=== PATIENT | female | born 1995 | race Caucasian/White ===

== ENCOUNTER 2020-03-10 09:29 | Outpatient (CLI) | payer OTHER, SELFPAY ==
--- NOTE | ~2020-03-10 | US_ITS ---
EXAMINATION: US right upper quadrant DATE: 03/10/2020 10:23 INDICATION: Postprandial right upper quadrant pain TECHNIQUE: Multiple grayscale and Doppler ultrasound images of the abdomen were obtained. COMPARISON: None available FINDINGS: The head and and body of the pancreas are normal. The pancreatic tail is obscured by bowel gas. The liver demonstrates increased echogenicity, heterogenous echotexture, and decreased through t ransmission. There is focal fatty sparing adjacent to the gallbladder fossa the liver. No surface nod ularity. Normal hepatopetal flow in the main portal vein. The gallbladder is normal with no abnormal wall thickening, pericholecystic fluid or stones. The normal common bile duct measures 4 mm. There wa s no sonographic Huggins sign. IMPRESSION: 1. Diffuse hepatic steatosis. Reviewed, dictated and finalized at location A.
== END 2020-03-10 09:30 | disposition home or self-care (01) ==
PROVIDERS: PCP Physician Assistant; Visit Provider Physician Assistant
DX: R10.11 Right upper quadrant pain (principal); K76.0 Fatty (change of) liver, not elsewhere classified
CPT/HCPCS: 76705

== ENCOUNTER → 2020-03-24 07:48 | Outpatient (CLI) | payer OTHER, SELFPAY ==
--- NOTE | ~2020-03-24 | MR_ITS ---
EXAMINATION: MR brain/brain stem wo/w con DATE: 03/24/2020 08:33 INDICATION: Migraine headache. TECHNIQUE: Magnetic resonance imaging (MRI) of the brain and brainstem was performed without and with 17 mL MultiHance intravenous contrast. Sequences included sagittal and axial T1-weighted FSE, axial diffusion-weighted FS EPI, axial T2*-weighted GRE, axial T2-weighted FLAIR Propeller, and axial T2-we ighted Propeller. Postcontrast sequences included axial and coronal T1-weighted FSE. Apparent diffusi on coefficient (ADC) maps were created. COMPARISON: Sinuses CT 09/12/2017 FINDINGS: There is no intracranial hemorrhage, acute infarction, or abnormal intracranial mass lesion . The ventricles are normal in size. The mastoid air cells are normal. The paranasal sinuses are lai r. The orbits are normal. IMPRESSION: 1. Normal brain. Reviewed, dictated and finalized at location A. IMPRESSION: 1. Normal brain.
[2020-03-24 08:20] LABS: Estimated Glomerular Filt Rate > 60
== END ==
PROVIDERS: PCP Physician Assistant; Visit Provider Physician Assistant
DX: G43.909 Migraine, unspecified, not intractable, without status migrainosus (principal)
CPT/HCPCS: 36415; 70553; A9577

== ENCOUNTER → 2021-07-27 16:28 | Outpatient (CLI) | payer BC, SELFPAY ==
--- NOTE | ~2021-07-27 | XR_ITS ---
EXAMINATION: XR hand RT 2V INDICATION: Polyarthralgia TECHNIQUE: Two views of the right hand are obtained. COMPARISON: None available FINDINGS: There is no fracture, dislocation, or subluxation. The bones, soft tissues, and joint space s are normal. IMPRESSION: 1. No acute osseous abnormality. Reviewed, dictated and finalized at location B. DESTRUCTIVE EVALUATION SPECIALIST
--- NOTE | ~2021-07-27 | XR_ITS ---
EXAMINATION: XR hand LT 2V INDICATION: Polyarthralgia TECHNIQUE: Two views of the left hand are obtained. COMPARISON: None available FINDINGS: There is no fracture, dislocation, or subluxation. The bones, soft tissues, and joint space s are normal. IMPRESSION: 1. No acute osseous abnormality. Reviewed, dictated and finalized at location B. ECTIONAL OFFICER SERGEANT
--- NOTE | ~2021-07-27 | XR_ITS ---
EXAMINATION: XR lumbar spine 2-3V DATE: 07/27/2021 16:56 INDICATION: Polyarthralgia TECHNIQUE: Anteroposterior and lateral views of the lumbar spine, and cone-down lateral view of the l umbosacral junction were obtained. COMPARISON: None. FINDINGS: There is no fracture, dislocation, or subluxation. The vertebral body heights, alignment, a nd intervertebral disc spaces are normal. The paravertebral soft tissues are unremarkable. An IUD is noted. The bowel gas pattern is unremarkable. IMPRESSION: 1. No acute osseous abnormality. Reviewed, dictated and finalized at location B. C BOX MECHANIC
--- NOTE | ~2021-07-27 | XR_ITS ---
EXAMINATION: XR sacroiliac joints min 3V INDICATION: Polyarthralgia TECHNIQUE: Three views of the sacroiliac joints are obtained. COMPARISON: None available FINDINGS: Bone alignment is normal. There is no fracture. There is no abnormal sclerosis or erosion o f the sacroiliac joints. An IUD is noted. IMPRESSION: 1. No acute osseous abnormality. Reviewed, dictated and finalized at location B. AL SERVICES SPECIALIST
--- NOTE | ~2021-07-27 | XR_ITS ---
XR knee LT 3V 07/27/2021 16:56 INDICATION: Left knee pain PROCEDURE: 3 views left knee COMPARISON: 04/23/2014 FINDINGS: Fracture, dislocation or subluxation is not identified. The soft tissues appear within norm al limits. No foreign bodies are identified. IMPRESSION: 1: NO ACUTE BONE OR JOINT ABNORMALITY IDENTIFIED. Reviewed, dictated and finalized at location A. CH GRINDER
== END ==
PROVIDERS: Visit Provider Physician Assistant Medical
DX: M25.50 Pain in unspecified joint (principal)
CPT/HCPCS: 72100; 72202; 73120; 73562

== ENCOUNTER 2022-03-18 11:16 | Emergency (ER) | payer BC, SELFPAY ==
[2022-03-18 11:30] VITALS: BP 129/94; PULSE 110; RESP 18; TEMP 36.5; O2SAT 100
--- NOTE | 2022-03-18 12:32 | ED.GENADULT ---
HPI - General Adult General Chief complaint: Abdominal Pain Stated complaint: Abdominal Pain History of Present Illness HPI narrative: Patient is a 26-year-old female who presents to the [facility] via POV accompanied by her spouse for evaluation of umbilical abdominal pain that began at 6 AM this morning. Patient reports abdominal pain this morning was excruciating . It has alleviated since onset. Pain also radiates to upper abdomen. Additionally, she reports 2 episodes of vomiting and 2 BMs this am. She does reports one BM was diarrhea. Vomitus contents contained undigested food and bile. With Tums, Sprite, water, or crackers. Nothing worsens abdominal pain. Pain is 8/10 on pain scale. Related Data Home Medications Medication Instructions Recorded Confirmed escitalopram oxalate 20 mg tablet 1 tablet PO DAILY 03/18/22 03/18/22 levonorgestrel 20 mcg/24 hours (7 See Rx Instructions .Route .COMPLEX 03/18/22 03/18/22 yrs) 52 mg intrauterine device (Mirena) omeprazole 20 mg capsule,delayed 1 cap PO DAILY 03/18/22 03/18/22 release triamterene 37.5 1 tablet PO DAILY 03/18/22 03/18/22 mg-hydrochlorothiazide 25 mg tablet ubrogepant 100 mg tablet (Ubrelvy) 1 tablet PO DAILY 03/18/22 03/18/22 Allergies Allergy/AdvReac Type Severity Reaction Status Date / Time No Known Allergies Allergy Verified 03/18/22 11:41 Review of Systems Review of Systems: Denies past abdominal medical history. Pertinent negatives fever, chills, sweats, malaise, poor p.o. intake, change in appetite, recent weight loss, lymphadenopathy, headache, sore throat, dizziness, LOC, urinary sxs, back/flank pain, extremity paresthesias, blood in stool, nausea, vomiting, diarrhea, constipation, belching, bloating, dry mouth, heartburn, jaundice, vomiting blood, and PMFSH Comments I have reviewed and agree with the patient's past medical, surgical, social, and family hx as documented by the RN. There is no relevant family history pertinent to the presenting complaint. Exam Narrative: GENERAL: Well-appearing, well-nourished, and in no acute distress. HEAD: Normocephalic, atraumatic. No sinus tenderness or facial swelling appreciated. EYES: PERRLA and EOMI. No evidence of erythema, swelling, or drainage. ENT: Mucous membranes moist and pink. Uvula is midline without erythema and swelling. No evidence of petechial rash, cobblestoning, lesions, ulcers, erythema, swelling, exudates, peritonsillar abscess, tenting, or drooling. Breath odor and voice normal. NECK: Supple. No Lymphadenopathy or nuchal rigidity appreciated. CHEST: Bilateral lung roach are clear to auscultation. No respiratory distress. No evidence of cough or pleuritic cp upon examination. HEART: Regular rate and rhythm. No murmur, gallop, or rub heard. ABDOMEN: Soft, nondistended, normal active bowel sounds in all quadrants. No guarding. No rebound tenderness. No pulsatile or palpable abdominal mass(es). No CVAT. Generalized abdominal tenderness appreciated upon palpation. EXTREMITIES: Normal range of motion. No edema. SKIN: Warm, dry, no rash. Excellent skin turgor. NEURO: No focal deficits. Alert and oriented x3. Course Course Level of Care: Express Care Visit Vital Signs Vital signs: Vital Signs Temperature 97.7 F 03/18/22 11:30 Pulse Rate 110 H 03/18/22 11:30 Respiratory Rate 18 03/18/22 11:30 Blood Pressure 129/94 H 03/18/22 11:30 Pulse Oximetry 100 03/18/22 11:30 Oxygen Delivery Room Air 03/18/22 11:30 Temperature 97.7 F 03/18/22 11:30 Pulse Rate 110 H 03/18/22 11:30 Respiratory Rate 18 03/18/22 11:30 Blood Pressure 129/94 H 03/18/22 11:30 Pulse Oximetry 100 03/18/22 11:30 Oxygen Delivery Room Air 03/18/22 11:30 Transfer Transfer rationale: R/O ACUTE ABDOMEN Accepting physician: REPORT GIVEN TO ROMA YUN. ACCEPTING PHYSICIAN IS Transfer comments: ALL QUESTIONS ANSWERED. Medical Decision Making
== END 2022-03-18 12:45 | disposition short-term general hospital (02) ==
PROVIDERS: Emergency Provider Nurse Practitioner Family; PCP Physician Assistant
DX: R10.84 Generalized abdominal pain (principal); K21.9 Gastro-esophageal reflux disease without esophagitis; F41.9 Anxiety disorder, unspecified; F32.A Depression, unspecified; Z86.16 Personal history of COVID-19
CPT/HCPCS: 99212; G0463

== ENCOUNTER 2022-03-18 13:00 | Emergency (ER) | payer BC, SELFPAY ==
--- NOTE | ~2022-03-18 | CT_ITS ---
EXAMINATION: CT abdomen pelvis w con DATE: 03/18/2022 15:07 INDICATION: diffuse abd pain with wbc of 30 TECHNIQUE: Computed tomography (CT) of the abdomen and pelvis was performed with 100 mL Omnipaque-300 intravenous contrast. Automated exposure control and iterative reconstruction technique were employe d. The dose-length product was 862.24 mGy-cm. COMPARISON: None. FINDINGS: Lower thorax: Unremarkable Liver: Low-density liver parenchyma. Biliary/Gallbladder: Gallbladder is normal. No bile duct dilation. Pancreas: No mass or duct dilation. Spleen: Normal. Adrenals:No mass. Kidneys: No mass, stone, or hydronephrosis. GI tract: No small or large bowel dilation. Soft tissue density wall thickening of the distal duodenu m and proximal jejunum, with surrounding fluid and inflammatory change. Appendix not visualized. Mesentery/Peritoneum: No mass or free air. Small volume fluid in the mesentery and deep pelvis. Retroperitoneum: No mass. Pelvis: IUD, in good position. Pelvic organs appear normal.. Soft Tissues: Soft tissues and body wall unremarkable. Bones: No acute osseous finding. IMPRESSION: Proximal small bowel thickening with surrounding inflammation and fluid, may reflect infection or inf lammation. Ischemia could be considered if there is a history of vasculitis. Steatosis. Reviewed, dictated and finalized at location K. IMPRESSION: Proximal small bowel thickening with surrounding inflammation and fluid, may re flect infection or inflammation. Ischemia could be considered if there is a his tory of vasculitis. Steatosis.
[2022-03-18 13:12] VITALS: BP 143/102; PULSE 102; RESP 18; TEMP 36.8; O2SAT 98
--- NOTE | 2022-03-18 13:17 | ED.ABDPAIN ---
HPI - Abdominal Pain General Chief Complaint: Abdominal Pain Stated Complaint: abd pain Time Seen by Provider: 03/18/22 13:13 Source: patient History of Present Illness HPI narrative: Patient presents with abdominal pain nausea vomiting and diarrhea. Patient ports she had a mild stomachache last night however this morning it was worse and now associated with vomiting and diarrhea so she came the ER for further evaluation. Her pain is across her entire abdomen achy, constant, no clear aggravating factors, radiates across her whole abdomen. Reports 2 episodes of vomiting this morning without blood or bile. She denies diarrhea as well. She reports she just got back a week ago for a cruise but denies any known sick contacts any recent changes to her medications or any recent antibiotics. Related Data Home Medications Medication Instructions Recorded Confirmed escitalopram oxalate 20 mg tablet 1 tablet PO DAILY 03/18/22 03/18/22 levonorgestrel 20 mcg/24 hours (7 See Rx Instructions .Route .COMPLEX 03/18/22 03/18/22 yrs) 52 mg intrauterine device (Mirena) omeprazole 20 mg capsule,delayed 1 cap PO DAILY 03/18/22 03/18/22 release triamterene 37.5 1 tablet PO DAILY 03/18/22 03/18/22 mg-hydrochlorothiazide 25 mg tablet ubrogepant 100 mg tablet (Ubrelvy) 1 tablet PO DAILY 03/18/22 03/18/22 Allergies Allergy/AdvReac Type Severity Reaction Status Date / Time No Known Allergies Allergy Verified 03/18/22 13:11 Review of Systems Review of Systems: CONSTITUTIONAL: Denies fever, chills, or sweats. EYES: Denies visual changes, redness, or discharge. ENT: Denies rhinorrhea, congestion, sore throat, or otalgia. CARDIOVASCULAR: Denies chest pain, palpitations, or edema. RESPIRATORY: Denies cough or dyspnea. GASTROINTESTINAL: Diffuse abdominal pain with nausea vomiting and diarrhea GENITOURINARY: Denies dysuria or hematuria. SKIN: Denies rash or itching. MUSCULOSKELETAL: Denies back pain, joint pain, or myalgia. NEUROLOGIC: Denies headache, numbness, dizziness, or weakness. PSYCHIATRIC: Denies anxiety or depression. All systems reviewed & are unremarkable except as noted in HPI and below PMFSH Past Medical History Medical History (Updated 03/18/22 @ 16:00 by Rock Lloyd MD) Anxiety Social History Social History (Updated 03/18/22 @ 13:18 by Rcok Lloyd MD) Living arrangements: with family Exam Narrative: GENERAL: Well-appearing, well-nourished, and in no acute distress. HEAD: Normocephalic, atraumatic. EYES: PERRLA and EOMI. ENT: Nares clear, no rhinorrhea or epistaxis. Mucous membranes moist. NECK: Supple. No masses. No JVD ABDOMEN: Diffuse abdominal pain with deep palpation no rebound or guarding soft, nondistendedsounds. EXTREMITIES: Normal range of motion. No edema. SKIN: Warm, dry, no rash. NEURO: No focal deficits. Alert and oriented x3. PSYCH: Normal mood and affect. Course Reevaluation(s) Reevaluation #1: Patient resting comfortably results and plan reviewed with patient. Patient is comfortable with the outpatient plan. Date: 03/18/22 Time: 15:55 Vital Signs Vital signs: Vital Signs Temperature 36.8 C 03/18/22 13:12 Pulse Rate 102 H 03/18/22 13:12 Respiratory Rate 18 03/18/22 13:12 Blood Pressure 143/102 H 03/18/22 13:12 Pulse Oximetry 98 03/18/22 13:12 Temperature 36.8 C 03/18/22 13:12 Pulse Rate 96 03/18/22 16:03 Respiratory Rate 14 03/18/22 16:03 Blood Pressure 138/76 03/18/22 16:03 Pulse Oximetry 99 03/18/22 16:03 MDM - Abdominal Pain MDM Narrative Medical decision making narrative: H&P as above, vss, pt looks clinically well, exam mild diffuse abdominal pain, labs with significant leukocytosis however H&H is low platelets also elevated so CT was ordered, img showed small bowel inflammation additional labs/img considered, symptomatic relief available as needed, on reevaluation pt continues to looks clinically well. Suspect viral p
[2022-03-18] MEDS: SODIUM CHLORIDE 0.9% IV 1,000 ML 999 ML IV CONT ×2 (13:35→15:32)
[2022-03-18 13:48] LABS: Basophils Absolute Auto 0.1 K/mm3 (0.0-0.1); Basophils Percent Auto 0.2 % (0.2-1.2); Eosinophils Percent Auto 0.1 % (0-4.4); Hematocrit 47.5 % (37.0-47.0); Hemoglobin 15.6 g/dL (12.0-15.0); Immature Granulocyte Absolute 0.21 K/mm3 (0.00-0.031); Immature Granulocyte Percent A 0.7 % (0-0.5); Lymphocytes Absolute Auto 2.94 K/mm3 (0.9-3.2); Lymphocytes Percent Auto 9.9 % (18.3-44.2); Mean Corpuscular HGB Conc 32.8 g/dl (32-36); Mean Corpuscular Hemoglobin 27.9 pg (26-34); Mean Platelet Volume 9.9 fl (7.4-10.4); Monocytes Absolute Auto 1.1 K/mm3 (0.1-0.6); Monocytes Percent Auto 3.6 % (2.6-8.5); Neutrophils Absolute Auto 25.5 K/mm3 (1.3-6.7); Neutrophils Percent Auto 85.5 % (45.5-73.1); Platelet Count Result 551 k/mm3 (150-375); Red Blood Count 5.59 M/mm3 (4.2-5.4); Red Cell Distribution Width 13.6 % (11.5-14.5); White Blood Count 29.8 K/mm3 (4.5-10.0)
[2022-03-18 13:52] LABS: Appearance Urine Clear (Clear); Bilirubin Urine 1+ (Negative); Blood Urine Negative (Negative); Color Urine Yellow (Yellow); Glucose Urine UA Negative (Negative); Ketones Urine Negative (Negative); Leukocyte Esterase Ur Trace LEU/UL (Negative); Nitrate Urine Negative (Negative); Protein Urine Negative (Negative); Specific Grav Ur 1.015 (1.001-1.035); Urobilinogen Urine 0.2 mg/dL (<2.0)
[2022-03-18 13:56] LABS: Alanine Aminotransferase 42 U/L (6-35); Alkaline Phosphatase 90 U/L (38-126); Anion Gap 10 mmol/L (8-16); Aspartate Amino Transferase 41 U/L (14-36); Bilirubin,Total 0.5 mg/dL (0.2-1.3); Blood Urea Nitrogen 13 mg/dL (7-17); Carbon Dioxide 26 mmol/L (22-30); Chloride 105 mmol/L (98-107); Estimated CRCL calculation 95 ml/min; Estimated Glomerular Filt Rate > 60; Glucose 106 mg/dL (65-110); Lipase 136 U/L (23-300); Sodium 141 mmol/L (137-145)
[2022-03-18 13:58] LABS: Mucus Urine Rare /lpf; Squamous Epithelial Cell Urine Many /hpf (Few)
[2022-03-18] MEDS: ONDANSETRON INJ 4 MG/2 ML VIAL IV PUSH (14:07)
[2022-03-18 14:19] LABS: Add Urine Microscopic? YES
[2022-03-18 16:03] VITALS: BP 138/76; PULSE 96; RESP 14; O2SAT 99
== END 2022-03-18 16:13 | disposition home or self-care (01) ==
PROVIDERS: Emergency Provider Emergency Medicine; PCP Physician Assistant
DX: R11.2 Nausea with vomiting, unspecified (principal); R19.7 Diarrhea, unspecified; R10.84 Generalized abdominal pain; D72.829 Elevated white blood cell count, unspecified; K76.0 Fatty (change of) liver, not elsewhere classified; Z97.5 Presence of (intrauterine) contraceptive device; R93.3 Abnormal findings on diagnostic imaging of other parts of digestive tract
CPT/HCPCS: 36415; 74177; 80053; 81001; 81025; 83690; 85025; 96361; 96374; 99284; J2405; J7030; Q9967

== ENCOUNTER → 2022-04-17 11:13 | Outpatient (CLI) | payer BC, SELFPAY ==
--- NOTE | ~2022-04-17 | US_ITS ---
EXAMINATION: US pelvic complete DATE: 04/17/2022 11:31 INDICATION: IUD placement. Comparison:No prior studies for comparison. TECHNIQUE: Multiple transabdominal sonographic images of the pelvis performed. FINDINGS: The uterus measures 8.5 x 2.4 x 3.6 cm. IUD is present in the endometrium. The endometrial complex measures 4 mm. The right ovary measures 2.4 x 1.1 x 1.5 cm and the left ovary measures 2.3 x 1.8 x 2.3 cm. There ar e small follicles in each ovary. Normal doppler signal in both ovaries. There is no free fluid in the pelvis. There are no abnormal masses seen on either side. IMPRESSION: 1. Unremarkable pelvic ultrasound. IUD in expected position. Reviewed, dictated and finalized at location A.
== END ==
PROVIDERS: PCP Physician Assistant; Visit Provider Nurse Practitioner
DX: Z30.431 Encounter for routine checking of intrauterine contraceptive device (principal)
CPT/HCPCS: 76856

== ENCOUNTER 2022-06-20 16:06 | Emergency (ER) | payer OTHER, SELFPAY ==
[2022-06-20 16:16] VITALS: BP 142/98; PULSE 85; RESP 20; TEMP 36.9; O2SAT 100
--- NOTE | 2022-06-20 16:18 | ED.URI ---
HPI - URI/Sore Throat General Chief Complaint: Upper Respiratory Infection Stated Complaint: Sore Throat,Cough,Bilateral Ear Irritation Time Seen by Provider: 06/20/22 16:25 Source: patient and RN notes reviewed Mode of arrival: ambulatory Limitations: no limitations History of Present Illness HPI Narrative: 26-year-old female presents concern for 4 to 5-day history of sore throat, cough, nasal congestion, ear pressure. She reports symptoms seem to worsen today with worsening sore throat and ear pressure. Reports she took several [id number] multisymptom cold medicines with little relief. She reports having a negative COVID test at home. She denies body aches, chills, sweats. MD elicited complaint: sore throat and nasal congestion Related Data Home Medications Medication Instructions Recorded Confirmed escitalopram oxalate 20 mg tablet 1 tablet PO DAILY 03/18/22 06/20/22 levonorgestrel 20 mcg/24 hours (8 See Rx Instructions .Route .COMPLEX 03/18/22 06/20/22 yrs) 52 mg intrauterine device (Mirena) omeprazole 20 mg capsule,delayed 1 cap PO DAILY 03/18/22 06/20/22 release triamterene 37.5 1 tablet PO DAILY 03/18/22 06/20/22 mg-hydrochlorothiazide 25 mg tablet ubrogepant 100 mg tablet (Ubrelvy) 1 tablet PO DAILY 03/18/22 06/20/22 Allergies Allergy/AdvReac Type Severity Reaction Status Date / Time No Known Allergies Allergy Verified 06/20/22 16:23 Review of Systems Review of Systems: CONSTITUTIONAL: Reports malaise, fatigue Denies chills, sweats EYES: Denies visual changes, redness, or discharge. ENT: Reports rhinorrhea, congestion, sinus pain, otalgia, sore throat. CARDIOVASCULAR: Denies chest pain, palpitations, or edema. RESPIRATORY: Reports cough. Denies dyspnea. GASTROINTESTINAL: Denies abdominal pain, nausea, vomiting, diarrhea SKIN: Denies rash or itching. MUSCULOSKELETAL: Reports myalgia. NEUROLOGIC: Reports headache. All systems reviewed & are unremarkable except as noted in HPI and below PMFSH Past Medical History Medical History (Updated 06/20/22 @ 16:41 by Irma Martinez NP) Anxiety Comments At time of signature, agree with nursing past medical, surgical, social and family history. There is no relevant family history pertinent to the presenting complaint Exam Narrative: GENERAL: Nontoxic appearing and in no acute distress. HEAD: Normocephalic EYES: PERRLA, conjunctivae clear ENT: Nares clear, turbinates edematous and erythematous, clear discharge. Mucous membranes moist. TM pearly woody with dull light reflex bilaterally; no tragal tenderness. Oropharynx erythematous without lesions. Tonsils not enlarged and with exudate, no drooling, no hoarseness, no trismus, uvula midline. NECK: Supple. No lymphadenopathy CHEST: Clear to auscultation, breath sounds equal. No wheezing, rhonchi, rales, or stridor. No respiratory distress, speaks in full sentences. HEART: Regular rate and rhythm. No murmur heard. SKIN: Warm, dry, no rash. NEURO: Alert and oriented x3. PSYCH: Normal mood and affect Course Course Emergency Course: Patient is aware of diagnosis, understands and agrees to treatment plan. Anticipatory guidance given. Patient agrees to follow-up as directed and is aware of reasons to seek care at the emergency department. Portions of this record may have been created with voice recognition software Level of Care: Express Care Visit Vital Signs Vital signs: Vital Signs Temperature 98.4 F 06/20/22 16:16 Pulse Rate 85 06/20/22 16:16 Respiratory Rate 20 06/20/22 16:16 Pulse Oximetry 100 06/20/22 16:16 Oxygen Delivery Room Air 06/20/22 16:16 Temperature 98.4 F 06/20/22 16:16 Pulse Rate 85 06/20/22 16:16 Respiratory Rate 20 06/20/22 16:16 Pulse Oximetry 100 06/20/22 16:16 Oxygen Delivery Room Air 06/20/22 16:16 Reviewed. MDM - URI/Sore Throat MDM Narrative Medical decision making narrative: Differential diagnosis considered: Bright vi
== END 2022-06-20 16:46 | disposition home or self-care (01) ==
PROVIDERS: Emergency Provider Nurse Practitioner; PCP Physician Assistant
DX: J10.1 Influenza due to other identified influenza virus with other respiratory manifestations (principal); Z20.822 Contact with and (suspected) exposure to COVID-19; F41.9 Anxiety disorder, unspecified
CPT/HCPCS: 87081; 87426; 87804; 87880; 99213; C9803; G0463

== ENCOUNTER 2022-11-25 10:40 | Emergency (ER) | payer OTHER, SELFPAY ==
[2022-11-25 11:03] VITALS: BP 148/94; PULSE 75; RESP 20; TEMP 36.1; O2SAT 100
--- NOTE | 2022-11-25 11:31 | ED.GENADULT ---
HPI - General Adult General Chief complaint: Upper Respiratory Infection Stated complaint: lt ear and throat pain Time Seen by Provider: 11/25/22 11:31 Source: patient Mode of arrival: ambulatory Limitations: no limitations History of Present Illness HPI narrative: 7-year-old female patient presents to the [facility] with complaints of left ear pain and left-sided sore throat pain that started yesterday. Patient denies any fevers, body aches or chills. Patient states she has had a little bit a headache the left side of the head. Denies any abdominal pain, nausea, vomiting or diarrhea. Related Data Home Medications Medication Instructions Recorded Confirmed escitalopram oxalate 20 mg tablet 1 tablet PO DAILY 03/18/22 11/25/22 levonorgestrel 21 mcg/24 hours (8 See Rx Instructions .Route .COMPLEX 03/18/22 11/25/22 yrs) 52 mg intrauterine device (Mirena) omeprazole 20 mg capsule,delayed 1 cap PO DAILY 03/18/22 11/25/22 release triamterene 37.5 1 tablet PO DAILY 03/18/22 11/25/22 mg-hydrochlorothiazide 25 mg tablet Allergies Allergy/AdvReac Type Severity Reaction Status Date / Time No Known Allergies Allergy Verified 11/25/22 11:10 Review of Systems Review of Systems: CONSTITUTIONAL: Denies fever, chills, or sweats. EYES: Denies visual changes, redness, or discharge. ENT: Denies rhinorrhea, congestion, Positive sore throat, positive left otalgia. CARDIOVASCULAR: Denies chest pain, palpitations, or edema. RESPIRATORY: Denies cough or dyspnea. GASTROINTESTINAL: Denies abdominal pain, nausea, vomiting, or diarrhea. GENITOURINARY: Denies dysuria or hematuria. SKIN: Denies rash or itching. MUSCULOSKELETAL: Denies back pain, joint pain, or myalgia. NEUROLOGIC: Denies headache, numbness, or weakness. PSYCHIATRIC: Denies anxiety or depression. [facility] Past Medical History Medical History (Updated 11/25/22 @ 11:58 by CE Carreon) Anxiety Fracture of phalanx of left index finger Strep pharyngitis Social History Social History Living arrangements: with family Comments At the time of my signature I agree with nursing past medical history, surgical, social, and family history. There is no relevant family history pertinent to the presenting complaint. Exam Narrative: GENERAL: Well-appearing, well-nourished, and in no acute distress. HEAD: Normocephalic, atraumatic. EYES: PERRLA and EOMI. ENT: Nares clear, no rhinorrhea or epistaxis. Mucous membranes moist. posterior pharynx has small little pocket/tonsil stone noted to the left pharynx. Bilateral TMs are clear no erythema from body in the canal. NECK: Supple. No lymphadenopathy CHEST: Clear to auscultation. No respiratory distress. HEART: Regular rate and rhythm. No murmur heard. Normal peripheral pulses. ABDOMEN: Soft, nontender, nondistended, normal active bowel sounds. EXTREMITIES: Normal range of motion. No edema. SKIN: Warm, dry, no rash. NEURO: No focal deficits. Alert and oriented x3. Course Course Level of Care: Express Care Visit Reevaluation(s) Reevaluation #1: Evaluated patient notified her strep testing is negative. Does appear that she has possibly will also use a back with her we will go ahead and prescribe her some Magic mouthwash to help the pain, advised [id number] Tylenol ibuprofen as needed. Date: 11/25/22 Time: 11:59 Vital Signs Vital signs: Vital Signs Temperature 36.1 C L 11/25/22 11:03 Pulse Rate 75 11/25/22 11:03 Respiratory Rate 20 11/25/22 11:03 Blood Pressure 148/94 H 11/25/22 11:03 Pulse Oximetry 100 11/25/22 11:03 Oxygen Delivery Room Air 11/25/22 11:03 Temperature 36.1 C L 11/25/22 11:03 Pulse Rate 75 11/25/22 11:03 Respiratory Rate 20 11/25/22 11:03 Blood Pressure 148/94 H 11/25/22 11:03 Pulse Oximetry 100 11/25/22 11:03 Oxygen Delivery Room Air 11/25/22 11:03 vital signs reviewed. The patient h
== END 2022-11-25 12:00 | disposition home or self-care (01) ==
PROVIDERS: Emergency Provider Nurse Practitioner Family; PCP Physician Assistant
DX: J02.9 Acute pharyngitis, unspecified (principal); F41.9 Anxiety disorder, unspecified
CPT/HCPCS: 87081; 87880; 99213; G0463

== ENCOUNTER → 2022-12-01 10:12 | Outpatient (CLI) | payer OTHER, SELFPAY ==
--- NOTE | ~2022-12-01 | US_ITS ---
Pelvic ultrasound. Clinical History: IUD placement Technique: Realtime transabdominal scanning of the pelvis was performed. Color flow Doppler and Doppl er spectral analysis were performed. Findings: The uterus is anteverted. The endometrial stripe has a thickness of 6 mm. Questionable vis ualization of IUD. No focal mass is identified. The right ovary measures 2.8 x 1.4 x 2.0 cm. No significant right ovarian or adnexal mass is seen. The left ovary measures 2.9 x 1.3 x 2.0 cm. No significant left ovarian or adnexal mass is seen. There is no evidence of free fluid in the cul de sac. Impression: Questionable visualization of IUD in the endometrial cavity. Consider transvaginal exam to better vis ualize, as indicated. Reviewed, dictated and finalized at [facility]. Impression: Questionable visualization of IUD in the endometrial cavity. Consider transvagi nal exam to better visualize, as indicated.
== END ==
PROVIDERS: PCP Physician Assistant; Visit Provider Obstetrics & Gynecology Gynecology
DX: T83.32XA Displacement of intrauterine contraceptive device, initial encounter (principal)
CPT/HCPCS: 76856

== ENCOUNTER 2024-04-25 06:54 | Outpatient (CLI) | payer OTHER, SELFPAY ==
--- NOTE | ~2024-04-25 | NM_ITS ---
EXAMINATION: NM hepatobiliary w pharm DATE: 04/25/2024 09:11 CDT INDICATION: Upper abdominal pain COMPARISON: CT dated 03/18/2022. TECHNIQUE: 4.7 mCi Tc-99m mebrofenin (Choletec) was administered intravenously. Scintigraphic images of the abdomen were obtained for one hour. At the 1 hour time point, 2 mcg sincalide (Kinevac) was a dministered by slow intravenous infusion, and imaging was continued for 30 minutes. Gallbladder eject ion fraction was calculated by the technologist.] FINDINGS: There is normal clearance of radiotracer from the blood pool. There is homogeneous tracer u ptake by the liver. Activity progresses to the gallbladder and bowel. Gallbladder ejection fraction is 85% (normal 10-90%, but most patient with gallbladder dysfunction have GBEF < 35%).] IMPRESSION: 1. Normal hepatobiliary scan. Reviewed, dictated and finalized at location B.
== END 2024-04-25 06:55 | disposition home or self-care (01) ==
PROVIDERS: PCP Physician Assistant; Visit Provider Physician Assistant
DX: R10.10 Upper abdominal pain, unspecified (principal)
CPT/HCPCS: 78227; A9537; J2805

== ENCOUNTER 2024-06-16 08:24 | Outpatient (CLI) | payer OTHER, SELFPAY ==
--- NOTE | ~2024-06-16 | XR_ITS ---
EXAMINATION: XR UGIAC w barium swallow DATE: 06/16/2024 08:50 INDICATION: Acid reflux. TECHNIQUE: The patient drank thick barium, gas-producing crystals, and thin barium. Fluoroscopy of th e esophagus, stomach, and proximal small bowel was performed. Fluoroscopy exposure time was 0.8 minut es. The total number of images was 286. Total dose-area product was 2.4 Gy-cm^2. COMPARISON: CT abdomen and pelvis 03/18/2022 FINDINGS: There is no mass or stricture of the esophagus. Esophageal motility is normal. There is no hiatal hernia. There was no gastroesophageal reflux with provocative maneuvers. There is material in the stomach at the beginning of the procedure. The stomach and proximal small bowel show normal foldi ng patterns. IMPRESSION: 1. Material in the stomach at the beginning of the procedure. The patient reports last eating food th e night before the exam. These findings are suspicious for gastroparesis or bezoar. Reviewed, dictated and finalized at location A. IMPRESSION: 1. Material in the stomach at the beginning of the procedure. The patient repor ts last eating food the night before the exam. These findings are suspicious fo r gastroparesis or bezoar.
== END 2024-06-16 08:25 | disposition home or self-care (01) ==
PROVIDERS: PCP Physician Assistant; Visit Provider Physician Assistant
DX: K21.9 Gastro-esophageal reflux disease without esophagitis (principal); R93.3 Abnormal findings on diagnostic imaging of other parts of digestive tract
CPT/HCPCS: 74246

== ENCOUNTER 2024-08-08 00:54 | Day surgery (SDC) | payer OTHER, SELFPAY ==
[2024-07-25 09:12] VITALS: BMI 37.5
[2024-08-08 11:16] LABS: Glucose Point of Care 95 mg/dl (65-105)
[2024-08-08 11:21] VITALS: BP 145/103; PULSE 75; RESP 16; TEMP 36.3; O2SAT 100
[2024-08-08 11:22] VITALS: BMI 37.4
[2024-08-08 11:29] LABS: BEDSIDEPREGUCG Negative (Negative)
[2024-08-08] MEDS: LACTATED RINGERS 1,000 ML 150 ML IV CONT (11:31)
--- NOTE | 2024-08-08 12:01 | WPDANESEPPF ---
Anes - Initial Pre Proc Eval Procedure: Operation Date: 08/08/24 12:30 Proposed Procedures p Esophagogastroduodenoscopy - Pedor Goldstein MD Date/Time: 08/08/24 12:01 Surgeon: Pedro Goldstein MD Pre Op Diagnosis: GERD/ Early Satiety Patient Data Age: 28 Gender: F Height: 1.55 m Weight: 89.9 kg Last Vital Signs Temp 97.3 F L 08/08/24 11:21 Pulse 75 08/08/24 11:21 Resp 16 08/08/24 11:21 BP 145/103 H 08/08/24 11:21 Pulse Ox 100 08/08/24 11:21 O2 Del Method Room Air 08/08/24 11:21 Allergies Allergy/AdvReac Type Severity Reaction Status Date / Time No Known Allergies Allergy Verified 08/08/24 11:16 Home Medications Medication Instructions Recorded Confirmed Type escitalopram oxalate 20 mg tablet 1 tablet PO DAILY 03/18/22 08/08/24 History levonorgestrel 21 mcg/24 hr (up to See Rx Instructions .Route .COMPLEX 03/18/22 08/08/24 History 8 years) 52 mg intrauterine device (Mirena) omeprazole 20 mg capsule,delayed 1 cap PO DAILY 03/18/22 08/08/24 History release triamterene 37.5 1 tablet PO DAILY 03/18/22 08/08/24 History mg-hydrochlorothiazide 25 mg tablet metformin 500 mg tablet,extended 500 mg PO DAILY 07/10/24 08/08/24 History release 24 hr metoclopramide HCl 5 mg tablet 5 mg PO DAILY #30 tabs 07/10/24 08/08/24 Rx (Reglan) Laboratory Tests 08/08/24 08/08/24 11:14 11:21 POC Capillary Glucose 95 mg/dl (65-105) POC Urine HCG, Qual Negative (Negative) Patient hx anesthesia problems: none Family hx anesthesia problems: none Results Review: All pre-operative results and documents have been reviewed as part of the pre-operative evaluation. [facility] Past Medical History Medical History Anxiety Fracture of phalanx of left index finger Strep pharyngitis Social History Social History Smoking status: Never smoker Living arrangements: with family Spiritual care concerns: No Anes - Eval Final PreProcedure Day of Procedure 08/08/24 12:01 Patient weight: obese Heart: regular rate and rhythm Lungs: clear to auscultation Airway: Mallampati scale class II Neurological: alert and oriented Last oral intake: >/= 8 hours ASA classification: III Emergent: no Anesthetic plan: proceed Anesthesia type and monitoring: general GIVS and standard monitoring Results Review: All pre-operative results and documents have been reviewed as part of the pre-operative evaluation. Informed Consent: The patient's anesthetic plan and its attendant risks and benefits were discussed with the patient/family/POA. Questions were solicited and answers provided to the satisfaction of the patient/family/POA.
--- NOTE | 2024-08-08 12:46 | PM.IMHP ---
H&P: HPI History of Present Illness Date/Time: 08/08/24 12:46 Chief Complaint: dyspepsia Narrative: The patient reports symptoms of acid reflux, nausea about once a week, bloating, and feeling full all the time even with small amounts of food She has been on omeprazole 20 mg once daily for a couple years which helps as long as she takes it every day. She is suspected to have delayed gastric emptying based on a barium study and her symptoms. Here for EGD Review of Systems Review of Systems: All systems reviewed & are unremarkable except as noted in HPI and below PMFSH Past Medical History Medical History Anxiety Fracture of phalanx of left index finger Strep pharyngitis Social History Social History Smoking status: Never smoker Living arrangements: with family Spiritual care concerns: No Meds Home Medications and Allergies Home Medications Medication Instructions Recorded Confirmed Type escitalopram oxalate 20 mg tablet 1 tablet PO DAILY 03/18/22 08/08/24 History levonorgestrel 21 mcg/24 hr (up to See Rx Instructions .Route .COMPLEX 03/18/22 08/08/24 History 8 years) 52 mg intrauterine device (Mirena) omeprazole 20 mg capsule,delayed 1 cap PO DAILY 03/18/22 08/08/24 History release triamterene 37.5 1 tablet PO DAILY 03/18/22 08/08/24 History mg-hydrochlorothiazide 25 mg tablet metformin 500 mg tablet,extended 500 mg PO DAILY 07/10/24 08/08/24 History release 24 hr metoclopramide HCl 5 mg tablet 5 mg PO DAILY #30 tabs 07/10/24 08/08/24 Rx (Reglan) Allergies Allergy/AdvReac Type Severity Reaction Status Date / Time No Known Allergies Allergy Verified 08/08/24 11:16 Vital Signs Vital Signs - 24 hr 08/08/24 11:21 Temperature 97.3 F L Pulse Rate 75 Respiratory Rate 16 Blood Pressure 145/103 H Pulse Oximetry 100 Oxygen Delivery Room Air Exam Narrative: GENERAL: Well-appearing, well-nourished, and in no acute distress. HEAD: Normocephalic, atraumatic. EYES: PERRLA and EOMI. ENT: Nares clear, no rhinorrhea or epistaxis. Mucous membranes moist. posterior pharynx has small little pocket/tonsil stone noted to the left pharynx. Bilateral TMs are clear no erythema from body in the canal. NECK: Supple. No lymphadenopathy CHEST: Clear to auscultation. No respiratory distress. HEART: Regular rate and rhythm. No murmur heard. Normal peripheral pulses. ABDOMEN: Soft, nontender, nondistended, normal active bowel sounds. EXTREMITIES: Normal range of motion. No edema. SKIN: Warm, dry, no rash. NEURO: No focal deficits. Alert and oriented x3. Assessment and Plan Assessment and plan (1) Gastroparesis: Code(s): K31.84 - Gastroparesis Status: Acute Assessment and Plan: The patient is deemed a good candidate for the procedure. Consent signed. Will proceed. (2) Early satiety: Code(s): R68.81 - Early satiety Status: Acute
[2024-08-08] MEDS: SIMETHICONE ORAL SUSPENSION 20 MG/0.3 ML 30 ML BOTTLE 0.6 ML IRRIGATION (12:56)
[2024-08-08 13:03] VITALS: BP 99/64; PULSE 66; RESP 21; O2SAT 96
[2024-08-08 13:13] VITALS: BP 111/70; PULSE 55; RESP 19; O2SAT 100
[2024-08-08 13:23] VITALS: BP 110/67; PULSE 58; RESP 17; O2SAT 99
== END 2024-08-08 13:32 | disposition home or self-care (01) ==
PROVIDERS: Anesthesiology; PCP Physician Assistant; Referring Provider Nurse Practitioner; Visit Provider Internal Medicine Gastroenterology
PROC: 0DJ08ZZ Inspection of Upper Intestinal Tract, Via Natural or Artificial Opening Endoscopic (ICD-10-PCS; CPT 43235; principal; 2024-08-08 12:30)
DX: K29.50 Unspecified chronic gastritis without bleeding (principal); F41.9 Anxiety disorder, unspecified; E66.9 Obesity, unspecified; Z68.37 Body mass index [BMI] 37.0-37.9, adult; Z79.899 Other long term (current) drug therapy
CPT/HCPCS: 43239; 82948; 88305; J2704; J7120

== ENCOUNTER 2025-01-06 08:46 | Emergency (ER) | payer OTHER, SELFPAY ==
[2025-01-06 08:55] VITALS: BP 131/89; PULSE 84; RESP 17; TEMP 36.4; O2SAT 100
--- NOTE | 2025-01-06 09:06 | ED_ITS ---
HPI - URI/Sore Throat General Chief Complaint: Upper Respiratory Infection Stated Complaint: Sore throat / Ear Pain Time Seen by Provider: 01/06/25 09:06 Source: patient Mode of arrival: ambulatory Limitations: no limitations History of Present Illness HPI Narrative: Here for sore throat that started on 01/05 in the morning. She reports her main symptoms are sore throat pain that feels like knives radiating to the ears and her neck in slight body aches. She denies any sick contacts. She reports a little nausea. She is able to eat and drink okay. She denies any fevers. She denies cough and congestion. She denies any shortness of breath and trouble breathing. She denies any chest pain. Patient is prone to yeast infections with antibiotic use and requests treatment for yeast if she needs antibiotics. Related Data Home Medications ?Medication ?Instructions ?Recorded ?Confirmed ?Last Taken ?Type escitalopram oxalate 20 mg tablet 1 tablet PO DAILY 03/18/22 01/06/25 08/07/24 History levonorgestrel (Mirena) See Rx Instructions .Route .COMPLEX 03/18/22 01/06/25 08/08/24 History triamterene 37.5 1 tablet PO DAILY 03/18/22 01/06/25 08/08/24 History mg-hydrochlorothiazide 25 mg tablet metformin 500 mg tablet,extended 500 mg PO DAILY 07/10/24 01/06/25 08/07/24 History release 24 hr bupropion HCl 150 mg 24 hr tablet, mg PO 01/06/25 Unknown History extended release Allergies Allergy/AdvReac Type Severity Reaction Status Date / Time No Known Allergies Allergy Verified 01/06/25 08:53 Review of Systems Review of Systems: CONSTITUTIONAL: Denies fever, chills, or sweats. EYES: Denies visual changes, redness, or discharge. ENT: Denies rhinorrhea, congestion. Reports sore throat and otalgia. CARDIOVASCULAR: Denies chest pain, palpitations, or edema. RESPIRATORY: Denies cough or dyspnea. GASTROINTESTINAL: Denies abdominal pain, vomiting, or diarrhea. reports nausea. GENITOURINARY: Denies dysuria or hematuria. SKIN: Denies rash or itching. MUSCULOSKELETAL: Denies back pain, joint pain. reports body aches NEUROLOGIC: Denies numbness, or weakness. reports headaches. PSYCHIATRIC: Denies anxiety or depression. All other systems reviewed are negative, except as documented in HPI. [facility] Past Medical History Medical History Strep pharyngitis Fracture of phalanx of left index finger Anxiety Social History Social History Smoking status: Never smoker Living arrangements: with family Spiritual care concerns: No Comments At time of signature, I have reviewed and agree with nursing past medical, surgical, social and family history unless otherwise noted. Please see nursing chart for further information. There is no relevant family history pertinent to the presenting complaint. Exam Narrative: GENERAL: This is a well-nourished, well-developed patient, in no apparent distress. HEAD: normocephalic, atraumatic. EYES: Sclera clear/white. no drainage. EARS: External ears normal, auditory canals clear and without drainage, TMs slightly erythematous without perforation. Hearing grossly intact. NOSE: External nose normal with no obvious nasal discharge, nares without redness, no rhinorrhea. THROAT: Mucous membranes moist, posterior pharynx erythematous with exudate. NECK: Neck tender with submandibular and preauricular lymphadenopathy. CARDIOVASCULAR: Regular rate and rhythm without murmurs, gallops, or rubs. RESPIRATORY: Clear to auscultation. Breath sounds equal bilaterally. No wheezes, rales, or rhonchi. SKIN: warm, Dry, intact with no suspicious lesions or rash, good texture and turgor. NEURO: awake, alert, and oriented to person, place and time. There were no obvious focal neurologic abnormalities. EXTREMITIES: No joint tenderness, effusion, or edema noted. Course Course Level of Care: Express Care Visit Vital Signs Vital signs: Vital Signs Temperature 36.4 C 01/06/25 08:55 Pulse Rate 84 01/06/25 08:55 Respiratory Rate 17 01/06/25 08:55 Blood Pressure 131/89 01/06/25 08:55 Pulse Oximetry 100 01/06/25 08:55 Oxygen Delivery Room Air 01/06/25 08:55 Temperature 36.4 C 01/06/25 08:55 Pulse Rate 84 01/06/25 08:55 Respiratory Rate 17 01/06/25 08:55 Blood Pressure 131/89 01/06/25 08:55 Pulse Oximetry 100 01/06/25 08:55 Oxygen Delivery Room Air 01/06/25 08:55 reviewed. MDM - URI/Sore Throat MDM Narrative Medical decision making narrative: Strep test positive today. Patient is aware of diagnosis, understands and agrees to treatment plan. Anticipatory guidance was given. Reviewed the patient gets vaginal yeast infections with antibiotic use. Discussed risk and benefits of treatment for vaginal yeast. Reviewed oral Diflucan has interaction with escitalopram shared decision making was used to decide that topical vaginal yeast treatment was safest. This was prescribed for yeast if it develops with antibiotic use. Patient agrees to follow-up as directed and is aware of reasons to seek care at the emergency department. Discharge instructions?? Were reviewed with the patient, as well as provided in writing per nursing staff. All questions have been answered, and the patient denies any further questions related to discharge or discharge plan. Lab Data Labs: Strep test positive. flu and COVID swabs negative. Discharge Plan Discharge Clinical Impression: Strep pharyngitis Patient Disposition: Home Condition: Stable Instructions: Antibiotic Form, Strep Throat (ED) Additional Instructions: Take medications as prescribed and follow printed instructions. May take over the counter acetaminophen and/or ibuprofen by mouth as needed/directed for pain/fever.? May use over the counter throat sprays and lozenges to help with throat pain.? May use warm salt water gargles for pain.? Push fluids and soft diet; advance as tolerated.? No juices or sodas as this will increase pain.? Do not share eating or drinking utensils.? Change toothbrush after 3 days.?? Nutrition is important - eat small frequent meals. Call your Primary Care Doctor today to make a follow-up appointment. Go to the ER for any worsening symptoms or concerns. Patient Language: Slovak Prescriptions: New amoxicillin 500 mg capsule 500 mg PO Q12H Qty: 20 0RF clotrimazole [Clotrimazole-7] 1 % cream 1 appful vaginal HS 7 Days Qty: 45 0RF No Action triamterene-hydrochlorothiazid 37.5-25 mg tablet 1 tablet PO DAILY escitalopram oxalate 20 mg tablet 1 tablet PO DAILY Mirena 20 mcg/24 hours (7 yrs) 52 mg Intrauterine Device See Rx Instructions .ROUTE .COMPLEX Rx Instructions: 20 mcg intrauterinely bupropion HCl 150 mg tablet extended release 24 hr PO metformin 500 mg tablet extended release 24 hr 500 mg PO DAILY omeprazole 20 mg capsule,delayed release(DR/EC) 20 mg PO DAILY Qty: 90 3RF metoclopramide HCl [Reglan] 5 mg tablet 5 mg PO DAILY Qty: 90 3RF Follow-up/Referrals: Alexander,DEEPTI Walton [Primary Care Provider] - Stand Alone Forms: Work/School Release IP Time of Disposition: 09:37
--- OUTSIDE RECORDS SUMMARY | 2025-01-06 09:16 | XMS_ITS | Clinical Summary ---
Author Organization [facility] Address [address] [place] [address] Care Team Providers Care Wax Engraver Name Role Phone Isabelle Foster Primary Care Pr ovider Source Comments [facility],non-owned Affiliates and Associated Physician Practices is amultiple site organization consisting of ambulatory clinics and hospital sitesin [place], [place], [place] and [place]. This disclosure is being madepursuant to the Care Everywhere program and may not contain all information available regarding this patient. Last updated 18.[facility] Allergies No known active allergies Medications * Be aware that medications may not be up to date on this document. Alwaysverify current medications with the patient. Norethin Ayan-Eth Estrad-FE (MINASTRIN 24 FE) 1-20 MG-MCG(24) tablet Take 1 Tab by mouth once daily Active Escitalopram Oxalate (LEXAPRO PO) Active Social History Tobacco Use Types Packs/Day Years Used Date Smoking Tobacco: Never Smokeless Tobacco: Never Comments No Sex and Gender Information Value Date Recorded Sex Assigned at Not on file Legal Sex Female 11:49 AM CDT Gender Identity Not on file Sexual Orientation Not on file Last Filed Vital Signs Vital Sign Reading Time Taken Comments Blood Pressure 122/70 10/04/2019 9:56 AM COMPUTATIONAL PHYSICIST Pulse 84 10/04/2019 9:56 AM COMPUTATIONAL PHYSICIST Temperature 37.1 C (98.8 F) 10/04/2019 9:56 AM COMPUTATIONAL PHYSICIST Respiratory Rate 16 10/04/2019 9:56 AM COMPUTATIONAL PHYSICIST Oxygen Saturation 98% 10/04/2019 9:56 AM COMPUTATIONAL PHYSICIST Inhaled Oxygen Concentration - - Weight 86.2 kg (190 lb) 10/04/2019 9:56 AM COMPUTATIONAL PHYSICIST Height 154.9 cm (5' 1 ) 10/04/2019 9:56 AM COMPUTATIONAL PHYSICIST Body Mass Index 35.9 10/04/2019 9:56 AM COMPUTATIONAL PHYSICIST Plan of Treatment Health Maintenance Due Date Last Done Comments PAP SMEAR 1995 HIV SCREENING 2010 HEPATITIS C SCREENING 08/19/2013 DTAP/TDAP/TD VACCINES (1 - Tdap) 2014 HEPATITIS B VACCINE (1 of 3 - 19+ 3-dose series) 2014 COVID-19 VACCINE (3 - 2023-2 5 season) 2024 12/03/2020, 10/28/2020 DEPRESSION SCREENING 09/17/2024 INFLUENZA VACCINE (Season Ended) 2025 07/03/2018 ZOSTER VACCINE (1 of 2) 2045 HIB VACCINE Aged Out No longer eligi ble based on patient's age to complete this topic HPV VACCINE Aged Out No longer eligi ble based on patient's age to complete this topic MENINGOCOCCAL (Group B) VACCINE SHARED DECISION-MAKING Aged Out No longer eligible based on patient's age to complete this topic MENINGOCOCCAL GROUPS A/C/Y/W VACCINE Aged Out No longer eligible b ased on patient's age to complete this topic PNEUMOCOCCAL VACCINE Aged Out No long er eligible based on patient's age to complete this topic Insurance [employer] SELF PAY NO INSURANCE Member Subscriber Plan / Payer (Ef fective for All Dates) Name:Darling Mooney Member ID:Not on file Relation to Subscriber:Not on file Name:DARLING CORDERO Subscriber ID:Not on file (Home) Address: [address] [place] [id number] Payer ID:Not on file Group ID:Not on file Type:Self Pay Address: 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
--- OUTSIDE RECORDS SUMMARY | 2025-01-06 09:16 | XMS_ITS | Data Portability ---
Author Organization 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 Plan of Treatment Reminders Order Date Submit Date Provider Last Modified By Organization Details Last Modified Time Details Appointments None recorded. Lab None recorded. Referral None recorded. Procedures None recorded. Surgeries None recorded. Imaging electrocar diogram 2016 017 [email or web address] Not available 7 16:31:38 Medication Orders None recorded. Patient TargetsNo targets recorded. Patient Instructions Encounter Date Encounter Id Patient Instructions Last Modified By Organization Details Last Modified Time 09/13/2017 [id number] palpitations: care instructions [email or web address] Not available 09/13/2017 16:31:38 Reason for Referral None Reported. Results Created Date Observation Date Name Description Value Unit Range Abnormal Flag Note LastModifiedBy Organization Detail LastModifiedTime 09/13/20 17 09/13/2017 elect rocar diogr am Result EKG (09/13): NSR, NSST change s Not Available Austin Walls MD [address] [place], [place], [address], 09/13/2017 15:04:15 09/19/19 18 09/13/2017 elect rocar diogr am No observ ation record ed. [email or web address] Not Available 2017 10:00:46 Result Notes None recorded. Problems Name Problem SNOMED Code Status Onset Date Resolution Date Notes Provider Name and Address Organization Details Recorded Time Epistaxis Active 2016 KEVON Strauss [facility] 7 15:06:31 Headache 63965261 Active 2016 KEVON Strauss [facility] 7 15:06:37 Anxiety 96651208 Active [address] [facility] 7 15:06:42 Easy bruising 730813722 Active [address] [facility] 7 15:06:48 Abdominal pain 99230687 Completed 201609/13/2017 [facility] 7 16:30:22 Chest pain 42137581 Completed 201609/13/[facility] 16:30[facility] Palpitation s 33498803 Active 2016 Zane Morrison [facility] 7 16:30:34 Problem Notes None recorded. Procedures Surgical History Date Name Laterality Status Provider Name and Address Organization Details Recorded Time 04/16/2017 Tonsillect [place]/Adenoi dectomy completed Rubi Vivar [facility] 09/13/2017 15:07:56 Imaging Results Imaging Date Name Status LastModified by Organization Details LastModified Time 09/13/2017 electrocardiogram completed [email or web address] Informa tion not available 09/19/2017 10:00:46 Procedure Notes None recorded. Medical Equipment None Reported. Allergies No known drug allergies Medications Name Sig Start Date Stop Date Status Note LastModified by Organization Details LastModified Time oxycodone 5 mg/5 mL oral solution 09/13 completed Not Available Not Available Not Available omeprazole 40 mg capsule,paige yed release active Not Available Not Available Not Available magnesium oxide 400 mg (241.3 mg magnesium) tablet Take 1 tablet every other day by oral route. active Not Available Not Available No t Available methylpredni solone 4 mg tablets in a dose pack 09/13 completed Not Available Not Available Not Available ondansetron 4 mg disintegrati ng tablet 09/13 completed Not Available Not Available Not Available cefdinir 300 mg capsule 09/13 completed Not Available Not Available Not Available amoxicillin 875 mg-potassium clavulanate 125 mg tablet hasnt started yet 2016 active Not Available Not Available Not Avai lable escitalopram 10 mg tablet qd active Not Available Not Available Not Available Krystyna 0.35 mg tablet qd active Not Available Not Available No t Available Vitals Date Recorded Body height Body mass index (BMI) Body weight Heart rate Oxygen saturation Oxygen saturation in Arterial blood by Pulse oximetry Systolic blood pressure Diastolic blood pressure Provider Name and Address Organization Details Last Updated DateTime 7 154.94 cm 30.6 kg/m2 33009.9 6 g 78 /min 99 % 99 % 140 mm[Hg] 88 mm[Hg] Rubi Cb [place] [facility] 7 15:35:51 Social History Question Answer Notes LastModified by Organizat ion Details LastModified Time Tobacco Smoking Status Never Smoker Not Available [facility] 07/20/2020 03:30:42 What Is Your Level Of Alcohol Consumption? None [id number] Information not available 07/20/2020 What Is Your Level Of Caffeine Consumption? Moderate [id number] Information not available 07/20/2020 How Much Tobacco Do You Chew? None [id number] Information not available 07/20/2020 What Type Of Diet Are You Following? 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 09/13/2017 [id number] Information not available 07/20/2020 How Many Children Do You Have? 0 [id number] Information not available 07/20/2020 How Much Tobacco Do You Smoke? No [id number] Information not available 07/20/2020 Sex: Unknown Functional Status None recorded. Mental Status None recorded. Family History Nothing Reported. Medical History No medical history recorded. Gynecological HistoryNo gynecological history recorded. Obstetrics History GPAL:G 0 P 0 0 0 0 Past Encounters Encounter ID Performer Location Encounter Start Date Encounter Closed Date Diagnosis/Indication Diagnosis SNOMED-CT Code Diagnosis ICD10 Code Diagnosis Note [id number] Zane Holderski [facility] OFF[facility] [address] [place] [address] 09/13/2017 14:26:39 09/14/2017 09:12:09 Palpitations 71324776 R00.2 Holter, ECHO'Labs from PCStart supplement ation of Mg. Health Concerns Section Related Observation LastModified by Organization Detai ls LastModified Time None Recorded Concern Status LastModified by Organization Details LastModified Time None Recorded Advance Directives Directive None Recorded Payers Encounter Date Sequence Insurance Name Policy Number Policy [place] Covered Member ID [place] Member ID Guarantor Name 09/13/2017 1 [employer] [facility] CHOICE (POS II) [id number] Marcelo Cordero [id number] Darling Cordero Notes Date Note Type Note Provider Name and Address Organization Details Recorded Time 09/13/2017 text/html Mrs. Cordero is a pleasant 22 y/o WF with PHH of anxiety who presents for initial cardiovascular evaluation. Pt states that she started to experience recently palpitations. Her palpitations started first time ever. they happen once every couple days. Last for few seconds. No dizziness, no syncopal episodes,. BP used to be elevated due to control pill but after switching looks bettershe does not follow low Na diet No previous cardiac problems. No cardiac evaluation. {{No known history of coronary artery disease.* History of coronary artery disease reported.}} {{No history of previous myocardial infarction.* History of previous myocardial infarction reported.}} {{No history of heart failure.* History of heart failure reported.}} {{No known valvular heart disease.* History of valvular heart disease reported.}} {{No known arrhythmia.* History of arrhythmia reported.}} {{Patient reports feeling well overall.* Patient reports not feeling well sometimes.}} {{Patient is active, but is not exercising regularly.* Patient is active, exercising regularly. Patient is not very active, and is not exercising.}} {{No chest pain.* Chest pain reported. Exertional chest pain reported. Non-exerti onal chest pain reported. Chest pain reported which is only sometimes associated with activity.}} {{No arm pain.* Arm pain reported.}} {{No neck pain.* Neck pain reported.}} {{No nausea and vomiting.* Nausea and vomiting reported.}} {{No diaphoresis.* Diapho resis reported.}} {{No shortness of breath at rest.* Shortness of breath at rest reported.}} {{No dyspnea on exertion.* Dyspnea on exertion reported.}} {{No fatigue.* Fatigue reported.}}{{No orthopnea.* Orthopne a reported.}} {{No PND.* PND reported.}} {{No leg swelling.* Leg swelling reported.}} {{No palpitation. Palpita tion reported.*}} {{No dizziness.* Dizzines s reported.}} {{No syncope .* Syncope reported.}} {{No pre-syncope.* Pre-sy ncope reported.}} {{No claudication.* Tito ication reported.}} {{No major bleeding events.* Major bleeding event reported.}} {{No side effects from medications.* Side effects from medications reported.}} {{Complete ROS negative except as stated in the HPI. Complete ROS negative except as stated in the HPI and ROS.*}} Results from this visit, or from the past: EKG (09/13/17): NSR, NSST changes KEVON Conte [facility] 09/13/2017 16:32:48 OBGyn Episode No OBEpisode recorded.
--- OUTSIDE RECORDS SUMMARY | 2025-01-06 09:16 | XMS_ITS | Data Portability ---
Author Organization [facility] CASSANDRAKenia Address [address] [facility] [place] [address] Care Team Providers Care Electrocardiograph Technician Name Role Phone POLINA VANG [employer] Former Supervisor [phone] ODALIS AUSTIN Primary Care Provider Unavailab le Assessment No assessment recorded. Plan of Treatment Reminders Order Date Submit Date Provider Last Modified By Organization Details Last Modified Time Details Appointments ANY 15 2024 10:30A M JAMA Rajan Not available Not available Not available Lab lipid panel, serum 2023 024 [employer] [facility], [address], [address], 07/24/2024 11:39:07 CMP, serum or plasma 2023 024 [employer] [facility], [address], [address], 07/24/2024 11:39:06 CBC w/ auto diff 2023 024 [employer] [facility], [address], [address], 07/24/2024 11:39:07 insulin, serum 2023 024 [employer] [facility], [address], [address], 07/24/2024 11:39:06 HbA1c (hemoglob in A1c), blood 2023 024 [employer] [facility], [address] [address], [place], [address], 07/24/2024 11:39:06 TSH + free T4, serum 2023 024 K[facility], [address] [address], [place], [address], 07/14/2024 09:21:52 potato IgG AB, quantitat imelda, serum 2023 024 [email or web address] [facility], [address] [address], [place], [address], 12/26/2023 11:45:11 potato ige, serum 2023 024 [email or web address] [facility], [facility] [address] [address], [place], [address], 12/26/2023 11:45:47 paprika IgG Ab, quantitat imelda, serum 2023 024 [email or web address] [facility], [address] [address], [place], [address], 12/26/2023 11:46:08 tomato ige, serum 2023 024 [email or web address] [facility], [address] [address], [place], [address], 12/26/2023 11:45:01 tomato IgG Ab, quantitat imelda, serum 2023 024 [email or web address] [employer] [facility], [facility] [address] [address], [place], [address], 12/26/2023 11:44:46 TSH + free T4, serum 2023 024 [email or web address] [facility], [facility] [address] [address], [place], [address], 12/26/2023 11:44:08 lipid panel, serum 2023 024 [facility], [address], [address], 12/26/2023 11:44:35 CBC w/ auto diff 2023 024 [facility] [employer] [facility], [facility] [address], [address], 12/26/2023 11:43:51 CMP, serum or plasma 2023 024 [facility], [facility] [address], [address], 12/26/2023 11:43:39 vitamin B12 + folate, serum or blood [address] [facility], [address] [place] [address], [address], 12/26/2023 11:43:23 HbA1c (hemoglob in A1c), blood 2023 024 [facility], [facility] [address], [address], 12/26/2023 11:44:24 insulin, serum 2023 024 [employer] [facility], [address] [place] [address], [address], 12/14/2023 16:26:35 Referral None recorded. Procedures None recorded. Surgeries None recorded. Imaging None recorded. Medication Orders Wegovy 0.25 mg/0.5 mL subcutane ous pen injector 2024 025 [id number], [address], [place], [phone], 11/17/2024 15:26:45 metformin ER 500 mg tablet,ex tended release 24 hr 2023 024 [facility][id number], [address] [place] [address], [id number], 06/12/2024 14:49:52 bupropion HCl XL 150 mg 24 hr tablet, extended release 2023 024 [email or web address] #64278, [address] [place] [address], [id number], 11/17/2024 15:08:38 albuterol sulfate HFA 90 mcg/actua tion aerosol inhaler 2023 024 [email or web address] [facility] #03542, [address] [place] [address], [id number], 02/07/2024 13:42:02 Patient TargetsNo targets recorded. Patient Instructions Encounter Date Encounter Id Patient Instructions Last Modified By Organization Details Last Modified Time 06/12/2024 [id number] A healthy lifestyle: care instructions [email or web address] Not available 06/12/2024 14:49:47 11/17/2024 [id number] A healthy lifestyle: care instructions [email or web address] Not available 11/17/2024 15:26:36 Reason for Referral None Reported. Results Created Date Observation Date Name Description Value Unit Range Abnormal Flag Note LastModifiedBy Organization Detail LastModifiedTime 04/25/2004/25/2024 NM, hepat obili annia scan, w/ CCK No observ ation record ed. [facility] [address], [place], [address], 04/25/2024 22:13:07 06/12/2001/21/2023 home sleep study No observ ation record ed. [facility] [address], [address], [place], [address], 06/13/2024 11:23:03 06/16/20 24 06/16/2024 RF, upper gastr ointe charan l tract , w/ contr ast PO No observ ation record ed. [facility] (Imaging) [address] [facility] [address], [place], [address], 06/17/2024 10:30:46 07/22/20 24 07/22/2024 NM, gastr ic empty ing scan No observ ation record ed. [id number], [place], [address], 07/22/2024 16:35:14 09/25/19 25 09/05/2024 NM, gastr ic empty ing scan No observ ation record ed. [facility] (Imaging) [address], [place], [address], 09/25/2024 12:48:30 Result Notes None recorded. Problems Name Problem SNOMED Code Status Onset Date Resolution Date Notes Provider Name and Address Organization Details Recorded Time Body mass index 30+ - obesity 063035836 Active 2023 Wily Plaza [place] null, [place] - [facility] 4 14:14:53 Generalized anxiety disorder 53860318 Active 2023 JAMA Rajan Attn: Negro fernandez,[address] [place], [address], [facility] 4 14:45:06 Insulin resistance 720156742 Active 2023 JAMA Rajan Attn: Negro fernandez,[address] [place], [address], [place] [facility] 4 14:45:07 Poor focus 672026544 Active 2023 JAMA Rajan Attn: Negro fernandez,[address] [place], [address], [facility] - [facility] 4 14:45:07 Mixed hyperlipidemia 906465117 Active 2023 JAMA Rajan Attn: Negro fernandez,[address] [place], [address], [place] [facility] 4 22:31:14 Long-term drug therapy Active 2023 JAMA Rajan Attn: Negro fernandez,[address] [facility], [place], [address], [place] [facility] 4 22:32:45 Obstructive sleep apnea syndrome 02272576 Active 2023 JAMA Rajan Attn: Negro fernandez,[address] [facility], [place], [address], [place] [facility] 4 22:33:32 Benign essential hypertension 4054625 Active 2024 JAMA Rajan Attn: Negro fernandez,[address] [facility], [place], [address], [place] [facility] 5 00:03:19 Problem Notes None recorded. Procedures Surgical History None recorded. Imaging Results Imaging Date Name Status LastModified by Organization Details LastModified Time 04/25/2024 NM, hepatobiliary scan, w/ CCK completed [address], [address], 04/25/2024 22:13:07 01/21/2023 home sleep study completed [facility] [address], [address], [place], [address], 06/13/2024 11:23:03 06/16/2024 RF, upper gastrointestinal tract, w/ contrast PO completed [facility] (Imaging) [address] [place] [address], [address], 06/17/2024 10:30:46 07/22/2024 NM, gastric emptying scan completed [address], [address], 07/22/2024 16:35:14 09/05/2024 NM, gastric emptying scan completed [facility] (Imaging) [address] [place] [address], [address], 09/25/2024 12:48:30 Procedure Notes None recorded. Medical Equipment None Reported. Allergies No known drug allergies Medications Name Sig Start Date Stop Date Status Note LastModified by Organization Details LastModified Time diphen/lid ocain/anta afshin susp SHAKE LIQUID WELL AND SWISH AND SPIT OR SWALLOW 5ML BY MOUTH TWICE DAILY 12/06 completed Not Available Not Available Not Available compound drug 12/06 completed Not Available Not Available Not Available Prescripti on - Prior Authorizat ion Request active Not Available Not Available Not Available doxycyclin e hyclate 100 mg capsule TAKE 1 CAPSULE BY MOUTH TWICE DAILY 12/06 completed Not Available Not Available Not Available spironolac tone 100 mg tablet TAKE 1 TABLET BY MOUTH DAILY 11/17 completed Not Available Not Available Not Available metoclopra mide 5 mg tablet TAKE 1 TABLET BY MOUTH DAILY active Not Available Not Available No t Available prednisone 50 mg tablet TAKE 1 TABLET BY MOUTH EVERY DAY FOR 5 DAYS 12/06 completed Not Available Not Available Not Available triamteren e 37.5 mg-hydroch lorothiazi de 25 mg tablet one tab po daily active Not Available Not Available No t Available omeprazole 20 mg capsule,de layed release Take 1 capsule every day by oral route for 90 days. active Not Available Not Available No t Available albuterol sulfate HFA 90 mcg/actuat ion aerosol inhaler inh 1-2 puffs q4 hours PRN wheezing active Not Available Not Available No t Available metformin ER 500 mg tablet,ext ended release 24 hr Take 1 tablet every day by oral route at dinner. active Not Available Not Available No t Available clindamyci n 1 % lotion active Not Available Not Available Not Available escitalopr am 20 mg tablet one tab po daily active take half tab daily. 10mg total Not Available Not Available Not Available bupropion HCl XL 150 mg 24 hr tablet, extended release one tab po daily 11/17 completed Not Available Not Available Not Available Ubrelvy 100 mg tablet Take 1 tab p.o. at onset of migraine may repeat in 2 hours as needed max of 200 mg in 24 hours 2024 active Not Available Not Available Not Avai lable Wegovy 0.25 mg/0.5 mL subcutaneo us pen injector Inject 0.25 mg every week by subcutane ous route. 2024 active Not Available Not Available Not Avai lable Wegovy 0.5 mg/0.5 mL subcutaneo pen injector Inject 0.5 mg every week by subcutane ous route. 2024 active Not Available Not Available Not Avai lable Vitals Date Recorded Respiratory rate Body weight Body mass index (BMI) Body height Oxygen saturation Oxygen saturation in Arterial blood by Pulse oximetry Heart rate Systolic blood pressure Diastolic blood pressure Provider Name and Address Organization Details Last Updated DateTime 4 20 /min 19455.0 7 g 38 kg/m2 154.94 cm 98 % 98 % 76 /min 124 mm[Hg] 82 mm[Hg] Wily Plaza MA [facility] 4 14:40:32 Date Recorded Systolic blood pressure Diastolic blood pressure Provider Name and Address Organization Details Last Updated DateTime 12/07/2023 118 mm[Hg] 80 mm[Hg] JAMA Rajan Attn: Accounting,[address] [place], [address], [facility] 12/07/2023 15:05:36 Date Recorded Body height Body mass index (BMI) Body weight Respiratory rate Oxygen saturation Oxygen saturation in Arterial blood by Pulse oximetry Heart rate Systolic blood pressure Diastolic blood pressure Provider Name and Address Organization Details Last Updated DateTime 4 154.94 cm 38.5 kg/m2 05578.0 5 g 18 /min 98 % 98 % 98 /min 120 mm[Hg] 82 mm[Hg] Wily Plaza MA [facility] 4 14:16:30 Date Recorded Systolic blood pressure Diastolic blood pressure Provider Name and Address Organization Details Last Updated DateTime 06/12/2024 120 mm[Hg] 86 mm[Hg] JAMA Rajan Attn: Accounting,[address] [place], [address], [facility] 06/12/2024 14:44:20 Date Recorded Body height Body mass index (BMI) Body weight Oxygen saturation Oxygen saturation in Arterial blood by Pulse oximetry Heart rate Respiratory rate Systolic blood pressure Diastolic blood pressure Provider Name and Address Organization Details Last Updated DateTime 5 154.94 cm 41.8 kg/m2 590318. 91 g 97 % 97 % 74 /min 18 /min 138 mm[Hg] 88 mm[Hg] Wily Plaza MA [facility] 15:10:59 Date Recorded Systolic blood pressure Diastolic blood pressure Provider Name and Address Organization Details Last Updated DateTime 11/17/2024 140 mm[Hg] 92 mm[Hg] JAMA Rajan Attn: Accounting,[address] [place], [address], [facility] 11/17/2024 15:29:03 Social History Question Answer Notes LastModified by Organizat ion Details LastModified Time Tobacco Smoking Status Never Smoker Wily Plaza MA [facility], [facility] 12/07/2023 14:37:00 Do You Have An Advance Directive? No Information not available 06/12/2024 What Is Your Level Of Alcohol Consumption? None Information not available 12/07/2023 Are You Blind Or Do You Have Difficulty Seeing? No Information not available 12/07/2023 What Is Your Level Of Caffeine Consumption? Occasional Coffee, Tea Information not available 12/07/2023 In The 14 Days Before Symptom Onset, Have You Had Close Contact With A Laboratory-confir med COVID-19 While That Case Was Ill? No Information not available 12/07/2023 In The 14 Days Before Symptom Onset, Have You Had Close Contact With A Person Who Is Under Investigation For COVID-19 While That Person Was Ill? No Information not available 12/07/2023 Have You Been To An Area Known To Be High Risk For COVID-19? No Information not available 12/07/2023 Are You Currently Employed? Yes Information not available 12/07/2023 Are You Deaf Or Do You Have Serious Difficulty Hearing? No Information not available 12/07/2023 What Type Of Diet Are You Following? 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 No Information not available 12/07/2023 What Was The Date Of Your Most Recent Tobacco Screening? 11/17/2024 Information not available 11/17/2024 Do You Use Your Seat Belt Or Car Seat Routinely? Yes Information not available 06/12/2024 Do You Have Smoke And Carbon Monoxide Detectors In Your Home? Yes Information not available 12/07/2023 Do You Use Any Illicit Or Recreational Drugs? No Information not available 12/07/2023 Do You Use Sunscreen Routinely? Yes Information not available 12/07/2023 Has Tobacco Cessation Counseling Been Provided? No Information not available 12/07/2023 Do You Or Have You Ever Used Any Other Forms Of Tobacco Or Nicotine? No Information not available 12/07/2023 Sex: Female Functional Status Question Answer Note LastModified by Organization D etails LastModified Time Are you able to care for yourself? Yes Information not available 12/07/2023 What is your exercise level? Moderate Information not available 12/07/2023 Mental Status None recorded. Family History Nothing Reported. Medical History No medical history recorded. Gynecological History Statement/Question Response Menses Monthly N Current Control Method IUD Obstetrics History GPAL:G 0 P 0 0 0 0 Immunizations Vaccine Type Date Status Note Provider Nam e and Address Organization Details Recorded Time COVID-19, mRNA, LNP-S, PF, 100 mcg/0.5mL dose or 50 mcg/0.25mL dose 10/28/2020 completed Wily Plaza [place], [place] [facility] 11/17/2024 15:09:28 COVID-19, mRNA, LNP-S, PF, 100 mcg/0.5mL dose or 50 mcg/0.25mL dose 12/03/2020 completed Wily Plaza [place], [place] [facility] 11/17/2024 15:09:28 COVID-19, mRNA, LNP-S, PF, 100 mcg/0.5mL dose or 50 mcg/0.25mL dose 09/13/2021 completed Wily Plaza [place], [place] [facility] 11/17/2024 15:09:28 Tdap 06/02/2023 completed Wily Plaza [place], [place] - [facility] 11/17/2024 15:09:28 Influenza, split virus, trivalent, PF 06/02/2015 completed Wily Plaza [place], [place] [facility] 11/17/2024 15:09:28 Influenza, split virus, quadrivalent, PF 06/02/2023 completed Wily Plaza [place] null, [place] - [facility] 11/17/2024 15:09:28 Past Encounters Encounter ID Performer Location Encounter Start Date Encounter Closed Date Diagnosis/Indication Diagnosis SNOMED-CT Code Diagnosis ICD10 Code Diagnosis Note [id number] JAMA Rajan [facility] [address] [place] [address] 12/07/2023 14:14:44 12/13/2023 11:20:40 Adult health examination 327125225 Z00.01 well exam completed Poor focus 708046345 H52 .7 start trial of wellbutrin XL 150mg daily. Eruption 708581537 R21 pt is having a rash with some specific foods she would like checked. Potato, palma peppers and tomatoes. Cholesterol screening 27 1232141 Z13.220 fasting lipids due Diabetes m ellitus screening 710687196 Z13.1 a1c screening due Thyroid di sorder screening 607783384 Z13.29 screening thyroid function lab Long-term drug therapy 920249417 Z79.899 routine cbc, cmp and b12, folate labs due. Exercise i nduced bronchospasm 005938227 J45.990 pt is having some exercise induced bronchospa sm symptoms. pt to trial albuterol inhaler prior to exercise to see if this helps mitigate symptoms. Body mass index 30+ - obesity 433804981 Z68.38 screening insulin lab du [id number] JAMA Rajan [facility] [place] [address] [place] [address] 06/12/2024 14:04:49 06/12/2024 15:16:03 Body mass index 30+ - obesity 465644491 Z68.38 BMI is 38.5 Obesity 046974341 E66.8 discussed healthy diet, exercise, controllin g carbohydra augusto and added sugars in the diet Poor focus 120565830 H52 .7 Continue Wellbutrin 150 mg daily this has been helping some for her focus. 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 Insulin resistance 80337 5000 E88.819 Insulin 36.8 and A1c 5.6 on November labs. Start metformin ER 500 mg with dinner to treat underlying insulin resistance present on November labs. She can check updated insulin and A1c labs at this time. Generalize d anxiety disorder 52418208 F41.1 Continue Lexapro 20 mg daily Long-term drug therapy 140429052 Z79.899 Routine CBC and CMP due Mixed hyperlipidemia 267 600435 E78.2 Diet and exercise modificati ons currently to help treat history of elevated lipid panel. Obstructiv e sleep apnea syndrome 72082208 G47.33 Patient still to make arrangemen ts to get new CPAP [id number] JAMA Rajan [facility] [place] [address] [place] [address] 11/17/2024 14:53:27 11/17/2024 15:34:40 Generalized anxiety disorder 99297073 F41.1 Continue Lexapro 10 mg daily Insulin resistance 17835 5000 E88.819 Patient is currently on metformin ER 500 mg daily for underlying insulin resistance . Additional ly Wegovy GLP injectable therapy would be the best decision on mechanism of action for treatment of insulin resistance Obstructiv e sleep apnea syndrome 70821453 G47.33 Patient still to make arrangemen ts to get new CPAP, new auto CPAP order sent with pressure parameters based off of sleep study Obesity 804280492 E66.9 discussed healthy diet, exercise, controllin g carbohydra augusto and added sugars in the diet Long-term drug therapy 683986010 Z79.899 Labs are up-to-date Body mass index 40+ - severely obese 975921968 Z68.41 bmi 41.8. start wegovy injectable therapy. no personal or family hx of Medullary thyroid cancer or MEN conditions . Benign ess ential hypertension 4711020 I10 Blood pressure is borderline at 140/92. Weight loss will be a successful route in lowering blood pressure. We are hopeful that injectable GLP therapy can be obtained Health Concerns Section Related Observation LastModified by Organization Detai ls LastModified Time None Recorded Concern Status LastModified by Organization Details LastModified Time None Recorded Advance Directives Directive N: Payers Encounter Date Sequence Insurance Name Policy Number Policy Palacios Covered Member ID Palacios Member ID Guarantor Name 12/07/2023 1 [employer] [id number] Paulie Reynosoran [id number] Darling Mooney 06/12/2024 1 [employer] [id number] Paulieelinor Reynosoran [id number] Darling Mooney 11/17/2024 1 [employer] [id number] Paulie Reynosoran [id number] Darling Mooney Notes Date Note Type Note Provider Name and Address Organization Details Recorded Time 12/07/2023 text/html Anxiety/Depressi on Reported bypatient.Notes:pt is stable on lexapro 20mg daily and stable.Obstructive Sleep Apnea F/UReported bypatient.Notes:mi ld AYANNA noted on prior home sleep testing. she cannot afford oral applianceReflux/GE RDReported bypatient.Notes:st able on omeprazole 20mg daily. Pt is working out 3-4 times per week, cardio and weights and she just cannot continue to lose. lost 6-8 pounds in 5 months. She has lost some inches, but with her controlled , consistent diet, she just should be losing more by now. JAMA Rajan Attn: Accounting[address] [place], [address], [facility] 12/13/2023 09:07:52 06/12/2024 text/html Anxiety/Depressi on Reported bypatient.Notes:pt is stable on lexapro 20mg daily and stable.Obstructive Sleep Apnea F/UReported bypatient.Notes:mi ld AYANNA noted on prior home sleep testing. she cannot afford oral applianceReflux/GE RDReported bypatient.Notes:st able on omeprazole 20mg daily. JAMA Rajan Attn: Accounting[address] [facility], [place], [address], [place] [facility] 06/19/2024 22:34:02 11/17/2024 text/html Anxiety/Depressi on Reported bypatient.Notes:pt is stable on lexapro 20mg daily and stable.Obstructive Sleep Apnea F/UReported bypatient.Notes:mi ld AYANNA noted on prior home sleep testing. she cannot afford oral applianceReflux/GE RDReported bypatient.Notes:st able on omeprazole 20mg daily. Patient is interested in injectable weight loss therapy. BMI is above 40 she has been unsuccessful with attempts on her own with diet and exercise. Underlying insulin resistant present JAMA Rjaan Attn: Accounting[address] [facility], [place], [address], [facility] 12/04/2024 00:03:45 OBGyn Episode No OBEpisode recorded.
--- OUTSIDE RECORDS SUMMARY | 2025-01-06 09:20 | XMS_ITS | Data Portability ---
Author Organization [place] - [facility], Main Office Address [address] [place] [address] Assessment No assessment recorded. Plan of Treatment Reminders Order Date Submit Date Provider Last Modified By Organization Details Last Modified Time Details Appointments None recorded. Lab lipid panel, serum 2022 023 [email or web address] [facility], [address], [place], [address], 3 16:00:33 CBC w/ auto diff 2022 023 [email or web address], [address], [place], [address], 3 16:00:32 CMP, serum or plasma 2022 023 [email or web address] [facility], [address], [place], [address], 3 16:00:33 TSH + free T4, serum 2022 023 [email or web address] [facility], [address], [place], [address], 3 16:00:33 HbA1c (hemoglobin A1c), blood 2022 023 [facility], [address], [place], [address], 3 16:00:33 Referral None recorded. Procedures None recorded. Surgeries None recorded. Imaging home sleep study 2022 023 [email or web address] Not available 15:08:31 Medication Orders Wellbutrin XL 150 mg 24 hr tablet, extended release 2022 023 [id number], [address] [place], [id number], 3 11:47:17 Patient TargetsNo targets recorded. Patient InstructionsNo instructions recorded. Reason for Referral None Reported. Results Created Date Observation Date Name Description Value Unit Range Abnormal Flag Note LastModifiedBy Organization Detail LastModifiedTime 04/20/2004/21/2022 CBC (INCL UDES DIFF/ PLT) white blood cell count 10.8 thous and/u L 3.8-10 .8 normal Not Available [address], [address], 04/21/2022 06:42:33 04/20/20 22 04/21/2022 CBC (INCL UDES DIFF/ PLT) red blood cell count 4.67 dawson on/uL 3.80-5 .10 normal Not Available [address], [address], 04/21/2022 06:42:33 04/20/20 22 04/21/2022 CBC (INCL UDES DIFF/ PLT) hemoglobin 12.9 g/dL 11.7-1 5.5 normal Not Available [address], [address], 04/21/2022 06:42:33 04/20/20 22 04/21/2022 CBC (INCL UDES DIFF/ PLT) hematocrit 40.2 % 35.0-4 5.0 normal Not Available [address], [address], 04/21/2022 06:42:33 04/20/20 22 04/21/2022 CBC (INCL UDES DIFF/ PLT) MCV 86.1 fL 80.0-1 00.0 normal Not Available [address], [address], 04/21/2022 06:42:33 04/20/20 22 04/21/2022 CBC (INCL UDES DIFF/ PLT) MCH 27.6 pg 27.0-3 3.0 normal Not Available [facility] [address], [address], 04/21/2022 06:42:33 04/20/20 22 04/21/2022 CBC (INCL UDES DIFF/ PLT) MCHC 32.1 g/dL 32.0-3 6.0 normal Not Available [address], [address], 04/21/2022 06:42:33 04/20/20 22 04/21/2022 CBC (INCL UDES DIFF/ PLT) RDW 13.5 % 11.0-1 5.0 normal Not Available [address], [address], 04/21/2022 06:42:33 04/20/20 22 04/21/2022 CBC (INCL UDES DIFF/ PLT) platelet count 406 thous and/u L 140-40 0 high Not Available [address], [address], 04/21/2022 06:42:33 04/20/20 22 04/21/2022 CBC (INCL UDES DIFF/ PLT) MPV 9.9 fL 7.5-12 .5 normal Not Available [facility] [address], [address], 04/21/2022 06:42:33 04/20/20 22 04/21/2022 CBC (INCL UDES DIFF/ PLT) absolute neutrophils 7052 cells /uL 1500-7 800 normal Not Available [facility] [address], [address], 04/21/2022 06:42:33 04/20/20 22 04/21/2022 CBC (INCL UDES DIFF/ PLT) absolute lymphocytes 3110 cells /uL 850-39 00 normal Not Available [address], [address], 04/21/2022 06:42:33 04/20/20 22 04/21/2022 CBC (INCL UDES DIFF/ PLT) absolute monocytes 475 cells /uL 200-95 0 normal Not Available [address], [address], 04/21/2022 06:42:33 04/20/20 22 04/21/2022 CBC (INCL UDES DIFF/ PLT) absolute eosinophils 130 cells /uL 15-500 normal Not Available [facility] [address], [address], 04/21/2022 06:42:33 04/20/20 22 04/21/2022 CBC (INCL UDES DIFF/ PLT) absolute basophils 32 cells /uL 0-200 normal Not Available [facility] [address], [address], 04/21/2022 06:42:33 04/20/20 22 04/21/2022 CBC (INCL UDES DIFF/ PLT) neutrophils 65.3 % normal Not Available [facility] [address], [address], 04/21/2022 06:42:33 04/20/20 22 04/21/2022 CBC (INCL UDES DIFF/ PLT) lymphocytes 28.8 % normal Not Available [facility] [address], [address], 04/21/2022 06:42:33 04/20/20 22 04/21/2022 CBC (INCL UDES DIFF/ PLT) monocytes 4.4 % normal Not Available [facility] [address], [address], 04/21/2022 06:42:33 04/20/20 22 04/21/2022 CBC (INCL UDES DIFF/ PLT) eosinophils 1.2 % normal Not Available [address] [address] [place], [address], 04/21/2022 06:42:33 04/20/20 22 04/21/2022 CBC (INCL UDES DIFF/ PLT) basophils 0.3 % normal Not Available [facility] [address] [address] [place], [address], 04/21/2022 06:42:33 04/20/20 22 04/21/2022 HEMOG LOBIN A1C hemoglobin A1C 5.2 %_of_ total _HGB <5.7 normal For the purpo se of chris hagan for the prese nce of diabe augusto: <5.7% Consi stent with the absen ce of diabe augusto 5.7-6 .4% Consi stent with incre ased risk for diabe augusto (pred iabet es) > or =6.5% Consi stent with diabe augusto This assay resul t is consi stent with a decre ased risk of diabe augusto. Curre ntly, no conse nsus exist s riley knapp use of hemog lobin A1c for diagn osis of diabe augusto in child [place]. Accor ding to Ameri can Diabe augusto Assoc iatio n (ADA) guide lines , hemog lobin A1c <7.0% repre sents optim al contr ol in non-p regna nt diabe tic patie nts. Diffe rent metri cs may apply to speci fic patie nt popul ation s. [facility] ards of Medic al Care in Diabe augusto(A DA). Not Available [address] [address] [place], [address], 04/21/2022 06:42:32 04/20/20 22 04/21/2022 COMPR EHENS MARY METAB OLIC PANEL glucose 98 mg/dL 65-99 normal Fasti ng refer ence inter blair Not Available [facility] [address], [place], [address], 04/21/2022 06:42:30 04/20/20 22 04/21/2022 COMPR EHENS MARY METAB OLIC PANEL urea nitrogen (BUN) 16 mg/dL 7-25 normal Not Available [address], [address], 04/21/2022 06:42:30 04/20/20 22 04/21/2022 COMPR EHENS MARY METAB OLIC PANEL creatinine 0.84 mg/dL 0.50-0 .96 normal Not Available [address], [address], 04/21/2022 06:42:30 04/20/20 22 04/21/2022 COMPR EHENS MARY METAB OLIC PANEL eGFR 98 mL/mi n/1.7 3m2 > or = 60 normal The eGFR is based on the CKD-E PI 2020 equat ion. To calcu late the new eGFR from a previ ous Creat inine or Cysta tin C resul t, go to https ://rayo leo/payton benton s/ kdoqi /gfr% 5Fcal culat or Not Available [address], [address], 04/21/2022 06:42:30 04/20/20 22 04/21/2022 COMPR EHENS MARY METAB OLIC PANEL BUN/creatini ne ratio not applic able (calc ) 6-22 Not Available [address], [address], 04/21/2022 06:42:30 04/20/20 22 04/21/2022 COMPR EHENS MARY METAB OLIC PANEL sodium 138 mmol/ L 135-14 6 normal Not Available [address], [address], 04/21/2022 06:42:30 04/20/20 22 04/21/2022 COMPR EHENS MARY METAB OLIC PANEL potassium 3.8 mmol/ L 3.5-5. 3 normal Not Available [address], [address], 04/21/2022 06:42:30 04/20/20 22 04/21/2022 COMPR EHENS MARY METAB OLIC PANEL chloride 103 mmol/ L 98-110 normal Not Available [address], [address], 04/21/2022 06:42:30 04/20/20 22 04/21/2022 COMPR EHENS MARY METAB OLIC PANEL carbon dioxide 27 mmol/ L 20-32 normal Not Available [address], [address], 04/21/2022 06:42:30 04/20/20 22 04/21/2022 COMPR EHENS MARY METAB OLIC PANEL calcium 9.4 mg/dL 8.6-10 .2 normal Not Available [address], [address], 04/21/2022 06:42:30 04/20/20 22 04/21/2022 COMPR EHENS MARY METAB OLIC PANEL protein, total 7.1 g/dL 6.1-8. 1 normal Not Available [address], [address], 04/21/2022 06:42:30 04/20/20 22 04/21/2022 COMPR EHENS MARY METAB OLIC PANEL albumin 4.5 g/dL 3.6-5. 1 normal Not Available [address], [address], 04/21/2022 06:42:30 04/20/20 22 04/21/2022 COMPR EHENS MARY METAB OLIC PANEL globulin 2.6 g/dL_ (calc ) 1.9-3. 7 normal Not Available [address], [address], 04/21/2022 06:42:30 04/20/20 22 04/21/2022 COMPR EHENS MARY METAB OLIC PANEL albumin/glob ulin ratio 1.7 (calc ) 1.0-2. 5 normal Not Available [address], [address], 04/21/2022 06:42:30 04/20/20 22 04/21/2022 COMPR EHENS MARY METAB OLIC PANEL bilirubin, total 0.5 mg/dL 0.2-1. 2 normal Not Available [address], [address], 04/21/2022 06:42:30 04/20/20 22 04/21/2022 COMPR EHENS MARY METAB OLIC PANEL alkaline phosphatase 68 U/L 31-125 normal Not Available [address], [address], 04/21/2022 06:42:30 04/20/20 22 04/21/2022 COMPR EHENS MARY METAB OLIC PANEL AST 23 U/L 10-30 normal Not Available [address], [address], 04/21/2022 06:42:30 04/20/20 22 04/21/2022 COMPR EHENS MARY METAB OLIC PANEL ALT 30 U/L 6-29 high Not Available [address], [address], 04/21/2022 06:42:30 04/20/20 22 04/21/2022 LIPID PANEL WITH RATIO S cholesterol, total 192 mg/dL <200 normal Not Available [address], [address], 04/21/2022 06:42:29 04/20/20 22 04/21/2022 LIPID PANEL WITH RATIO S HDL cholesterol 40 mg/dL > or = 50 low Not Available [facility] [address] [place] [address], [address], 04/21/2022 06:42:29 04/20/20 22 04/21/2022 LIPID PANEL WITH RATIO S triglyceride s 194 mg/dL <150 high Not Available [facility] [address], [address], 04/21/2022 06:42:29 04/20/20 22 04/21/2022 LIPID PANEL WITH RATIO S LDL-choleste rol 121 mg/dL _(gricel c) high Refer ence range : <100 Scott able range <100 mg/dL for prima ry preve ntion ; <70 mg/dL for patie nts with CHD or diabe tic patie nts with > or = 2 CHD risk facto rs. LDL-C is now calcu lated using the Katiana mcfadden-Hop kins terriu aranza n, which is a valid ated novel fabio matson r accur acy than the Fried alisha equat ion in the estim ation of LDL-C . Katiana mcfadden SS et al. SUZANNE. 2013; 310(1 9): 2061- 2068 (http ://ed ucati on.[employer]. com/f aq/FA Q164) Not Available [facility] [address] [place], [address], 04/21/2022 06:42:29 04/20/20 22 04/21/2022 LIPID PANEL WITH RATIO S chol/HDLC ratio 4.8 (calc ) <5.0 normal Not Available [facility] [address] [place] [address], [address], 04/21/2022 06:42:29 04/20/20 22 04/21/2022 LIPID PANEL WITH RATIO S LDL/HDL ratio 3.0 (calc ) Below avera ge Risk: <2.34 Franklin ge Risk: 2.35- 4.12 Moder ate Risk: 4.13- 5.56 High Risk: >5.57 Not Available [facility] [place] [address] [place], [address], 04/21/2022 06:42:29 04/20/20 22 04/21/2022 LIPID PANEL WITH RATIO S non HDL cholesterol 152 mg/dL _(gricel c) <130 high For patie nts with diabe augusto plus 1 major ASCVD risk facto r, treat ing to a non-H DL-C goal of <100 mg/dL (LDL- C of <70 mg/dL ) is consi dered a thera peutjorge c optio n. Not Available [facility] [address], [place], [address], 04/21/2022 06:42:29 04/20/20 22 04/21/2022 TSH+F REE T4 TSH 0.93 mIU/L normal Refer ence Range > or = 20 Years 0.40- 4.50 Pregn yamila Range s First trime ster 0.26- 2.66 Secon d trime ster 0.55- 2.73 Third trime ster 0.43- 2.91 Not Available [facility] [address], [place], [address], 04/21/2022 06:42:27 04/20/20 22 04/21/2022 TSH+F REE T4 T4, free 1.1 NG/dL 0.8-1. 8 normal Not Available [facility] [address] , [place], [address], 04/21/2022 06:42:27 03/22/20 22 03/18/2022 CT, abdom en + pelvi s, w/ contr ast No observ ation record ed. [id number] [facility] [address], [place], [address], 11/15/2022 18:55:37 07/26/20 22 04/17/2022 US, pelvi s, compl ete No observ ation record ed. [id number] [facility] [address], [place], [address], 11/15/2022 18:55:37 01/19/2012/01/2022 US, peltad s, compl ete No observ ation record ed. [email or web address] [address], [place], [address], 01/22/2023 15:42:42 02/02/20 23 01/21/2023 home sleep study No observ ation record ed. [email or web address] [facility] [address], [place], [address], 09/01/2023 10:36:52 Result Notes None recorded. 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 Procedures Surgical History Date Name Laterality Status Provider Name and Address Organization Details Recorded Time Tonsillectomy completed Not Available [facility] 11/15/2022 18:53:01 Imaging Results Imaging Date Name Status LastModified by Organiz ation Details LastModified Time 04/17/2022 US, pelvis, complete completed [id number] [facility] [address], [place], [address], 11/15/2022 18:55:37 03/18/2022 CT, abdomen + pelvis, w/ contrast completed [id number] [facility] [address], [place], [address], 11/15/2022 18:55:37 12/01/2022 US, pelvis, complete completed [email or web address] [facility] [address], [place], [address], 01/22/2023 15:42:42 01/21/2023 home sleep study completed [email or web address] [facility] [address] , [place], [address], 09/01/2023 10:36:52 Procedure Notes None recorded. Medical Equipment None Reported. Allergies No known drug allergies Medications Name Sig Start Date Stop Date Status Note LastModified by Organization Details LastModified Time diphen/li docain/an tacid susp SHAKE LIQUID WELL AND SWISH AND SPIT OR SWALLOW 5ML BY MOUTH TWICE DAILY active Not Available Not Available No t Available compound drug active Not Available Not Available Not Available id now influenza a & b 2 test kit TEST DIRECTED TODAY 01/11 completed Not Available Not Available Not Available Mirena 21 mcg/24 hr (up to 8 years) 52 mg intrauter ine device Take by intraute rine route. 2019 active Not Available Not Available Not Avai lable prednison e 10 mg tablet 02/07 completed Not Available Not Available Not Available doxycycli ne hyclate 100 mg capsule Take 1 capsule twice a day by oral route with meals. active Not Available Not Available No t Available sumatript an 100 mg tablet TAKE 1 TABLET BY MOUTH AT ONSET OF MIGRAINE . MAY REPEAT IN 2 HOURS. MAX 2 TABLETS PER DAY 07/06 completed Not Available Not Available Not Available metronida zole 0.75 % (37.5 mg/5 gram) vaginal gel 04/17 completed Not Available Not Available Not Available sumatript an 50 mg tablet TK 1 T PO AOS OF MIGRAINE . MAY REPEAT IN 1-2 HOUR NEEDED. MAX 100 MG PER DAY active Not Available Not Available No t Available oxycodone 5 mg/5 mL oral solution 05/14 completed Not Available Not Available Not Available penicilli n V potassium 500 mg tablet 04/17 completed Not Available Not Available Not Available sulfameth oxazole 800 mg-trimet hoprim 160 mg tablet TK 1 T PO Q 12 H 02/24 completed Not Available Not Available Not Available omeprazol e 40 mg capsule,d elayed release takes one daily 12/28 completed Not Available Not Available Not Available amoxicill in 875 mg tablet TK 1 T PO Q 12 H active Not Available Not Available No t Available alprazola m 0.25 mg tablet Take 1 tablet twice a day by oral route as needed. active Not Available Not Available No t Available dicyclomi ne 20 mg tablet TAKE 1 TABLET BY MOUTH THREE TIMES DAILY 07/06 completed Not Available Not Available Not Available oseltamiv ir 75 mg capsule 11/13 completed Not Available Not Available Not Available triamtere ne 37.5 mg-hydroc hlorothia zide 25 mg tablet TAKE 1 TABLET DAILY active Not Available Not Available No t Available omeprazol e 20 mg capsule,d elayed release TAKE 1 CAPSULE DAILY BEFORE A MEAL active Not Available Not Available No t Available codeine 10 mg-guaife nesin 100 mg/5 mL oral liquid TAKE 5 ML BY MOUTH EVERY 6 HOURS NEEDED FOR COUGH 07/06 completed Not Available Not Available Not Available scopolami ne 1 mg over 3 days transderm al patch Apply 1 patch every 72 hours by transder mal route as needed. 07/06 completed Not Available Not Available Not Available methylpre dnisolone 4 mg tablets in a dose pack FOLLOW PACKAGE DIRECTIO NS 07/06 completed Not Available Not Available Not Available ondansetr on 4 mg disintegr ating tablet DISSOLVE 1 TABLET ON THE TONGUE EVERY 6 HOURS NEEDED FOR NAUSEA OR VOMITING 07/06 completed Not Available Not Available Not Available cefdinir 300 mg capsule TK 1 C PO BID 12/27 completed Not Available Not Available Not Available fluticaso ne propionat e 50 mcg/actua tion nasal spray,alissa pension inhale 2 sprays each nostril daily active Not Available Not Available No t Available amoxicill in 875 mg-potass ium clavulana te 125 mg tablet 05/14 completed Not Available Not Available Not Available escitalop jefferson 10 mg tablet TAKE 1 TABLET DAILY 07/01 completed Not Available Not Available Not Available escitalop jefferson 20 mg tablet TAKE 1 TABLET DAILY active Not Available Not Available No t Available Krystyna 0.35 mg tablet Take 1 tablet every day by oral route for 84 days. 03/15 completed Not Available Not Available Not Available bupropion HCl XL 150 mg 24 hr tablet, extended release one tab po daily 2022 active Not Available Not Available Not Avai lable nutrition al supplemen ts 04/17 completed ULTRALIF E 121, SILYMARI N, 8 BILLION ACIDOPHI BIJU AND BIFIDUS, RELORA Not Available Not Available Not Available Ubrelvy 100 mg tablet active Not Available Not Available Not Available ID NOW COVID-19 Test Kit TEST DIRECTED TODAY 01/11 completed Not Available Not Available Not Available COVID-19 test specimen collectio n TEST DIRECTED 07/01 completed Not Available Not Available Not Available Vitals Date Recorded Body mass index (BMI) Body height Oxygen saturation Oxygen saturation in Arterial blood by Pulse oximetry Heart rate Respiratory rate Body temperature Body weight Systolic blood pressure Diastolic blood pressure Provider Name and Address Organization Details Last Updated DateTime 1 37.4 kg/m2 154.94 cm 98 % 98 % 76 /min 16 /min 98.1 [degF] 41699.2 9 g 122 mm[Hg] 78 mm[Hg] Not Available [facility] 3 18:53:45 Date Recorded Body mass index (BMI) Body height Oxygen saturation Oxygen saturation in Arterial blood by Pulse oximetry Heart rate Body temperature Body weight Systolic blood pressure Diastolic blood pressure Provider Name and Address Organization Details Last Updated DateTime 1 38.4 kg/m2 154.94 cm 98 % 98 % 78 /min 98 [degF] 99066.9 7 g 120 mm[Hg] 70 mm[Hg] Not Available [facility] 3 18:53:46 Date Recorded Body mass index (BMI) Body height Oxygen saturation Oxygen saturation in Arterial blood by Pulse oximetry Heart rate Respiratory rate Body temperature Body weight Systolic blood pressure Diastolic blood pressure Provider Name and Address Organization Details Last Updated DateTime 2 38.7 kg/m2 154.94 cm 98 % 98 % 81 /min 16 /min 98.2 [degF] 07860.4 4 g 128 mm[Hg] 82 mm[Hg] Not Available [facility] 3 18:53:46 Date Recorded Body mass index (BMI) Body height Oxygen saturation Oxygen saturation in Arterial blood by Pulse oximetry Heart rate Respiratory rate Body temperature Body weight Systolic blood pressure Diastolic blood pressure Provider Name and Address Organization Details Last Updated DateTime 2 38 kg/m2 154.94 cm 97 % 97 % 87 /min 16 /min 98.5 [degF] 89792.0 7 g 128 mm[Hg] 82 mm[Hg] Not Available [facility] 3 18:53:46 Date Recorded Body height Body weight Heart rate Oxygen saturation Oxygen saturation in Arterial blood by Pulse oximetry Body temperature Systolic blood pressure Diastolic blood pressure Provider Name and Address Organization Details Last Updated DateTime 3 154.94 cm 09846.8 8 g 74 /min 99 % 99 % 97.2 [degF] 124 mm[Hg] 82 mm[Hg] Darling Means RN [place] - S MS [facility] 3 11:17:35 Social History Question Answer Notes LastModified by Organizat ion Details LastModified Time Tobacco Smoking Status Never Smoker Not Available [facility] 11/15/2022 18:52:51 What Is Your Level Of Alcohol Consumption? Occasional [id number] Information not available 11/15/2022 What Is Your Level Of Caffeine Consumption? Occasional [id number] Information not available 11/15/2022 How Much Tobacco Do You Chew? None [id number] Information not available 11/15/2022 In The 14 Days Before Symptom Onset, Have You Had Close Contact With A Laboratory-confir med COVID-19 While That Case Was Ill? No [id number] Information not available 11/15/2022 In The 14 Days Before Symptom Onset, Have You Had Close Contact With A Person Who Is Under Investigation For COVID-19 While That Person Was Ill? No [id number] Information not available 11/15/2022 Are You Currently Employed? Yes [email or web address] Information not available 01/11/2023 What Type Of Diet Are You Following? REGULAR [id number] Information not available 11/15/2022 Which Illicit Or Recreational Drugs Have You Used? None [id number] Information not available 11/15/2022 Do You Or Have You Ever Used E-cigarettes Or Vape? Never Used Electronic Cigarettes [id number] Information not available 11/15/2022 What Is Your Occupation? [employer] MIGRATION.003870 4179 Information not available 11/15/2022 Have There Been Any Changes To Your Family Or Social Situation? No [id number].[id number] 8930 Information not available 11/15/2022 Are There Any Guns Present In Your Home? No [id number] Information not available 11/15/2022 Do You Use Insect Repellent Routinely? No [id number].[id number] 0685 Information not available 11/15/2022 What Is Your Relationship Status? Single MIGRATION.[id number] 0229 Information not available 11/15/2022 Do You Use Your Seat Belt Or Car Seat Routinely? Yes [id number].[id number] 9036 Information not available 11/15/2022 Do You Have Smoke And Carbon Monoxide Detectors In Your Home? Yes MIGRATION.[id number] 1527 Information not available 11/15/2022 At What Age Did You Start Smoking Tobacco? 1 MIGRATION.[id number] 2317 Information not available 11/15/2022 Do You Or Have You Ever Used Smokeless Tobacco? Never Used Smokeless Tobacco MIGRATION.[id number] Information not available 11/15/2022 How Much Tobacco Do You Smoke? No MIGRATION.505373 6753 Information not available 11/15/2022 Do You Use Any Illicit Or Recreational Drugs? No MIGRATION.350513 5603 Information not available 11/15/2022 Do You Use Sunscreen Routinely? Yes MIGRATION.754877 1429 Information not available 11/15/2022 How Many Years Have You Smoked Tobacco? 0 MIGRATION.261334 8872 Information not available 11/15/2022 Have You Recently Traveled Abroad? No MIGRATION.821057 2877 Information not available 11/15/2022 Do You Have Any Dietary Restrictions? No MIGRATION.885580 9825 Information not available 11/15/2022 Do You Or Have You Ever Used Any Other Forms Of Tobacco Or Nicotine? No MIGRATION.452496 6464 Information not available 11/15/2022 Sex: Unknown Functional Status Question Answer Note LastModified by Organizat ion Details LastModified Time What is your exercise level? Moderate [id number] Information not available 11/15/2022 Mental Status None recorded. Family History Relationship Description Onset Age of this Age Resolved Age Notes LastModified by Organization Details LastModified Time Mother Diabetes mellitus [id number] Not available 11/15/2022 18:53:02 Medical History Condition Response CARDIAC ARRHYTHMIA Y HEADACHES/MIGRAINES Y ANXIETY DISORDER Y Gynecological History Statement/Question Response Menses Monthly N How many live births 0 Abnormal Pap N Date of Last Pap 03/04/2020 Current Control Method IUD Sexually Active? Y Obstetrics History GPAL:G 0 P 0 0 0 0 Immunizations Vaccine Type Date Status Note Provider Nam e and Address Organization Details Recorded Time Influenza, split virus, quadrivalent, PF 06/24/2020 completed Not Available [facility] 3 18:55:31 Influenza, split virus, quadrivalent, PF 07/03/2018 completed Not Available [facility] 3 18:55:31 Influenza, split virus, quadrivalent, PF 07/01/2021 completed Not Available [facility] 3 18:55:31 Past Encounters Encounter ID Performer Location Encounter Start Date Encounter Closed Date Diagnosis/Indication Diagnosis SNOMED-CT Code Diagnosis ICD10 Code Diagnosis Note [id number] [facility] [place] [address] [place] [address] 12/31/2020 00:00:00 01/14/2021 19:40:22 [id number] [facility] [place] [address] [place] [address] 07/01/2021 00:00:00 07/17/2021 12:00:46 [id number] [facility] [place] [address] [place], [place] [address] 01/05/2022 00:00:00 01/14/2022 22:36:22 [id number] [facility] [place] [address] [place], [place] [address] 07/06/2022 00:00:00 07/15/2022 18:21:58 [id number] JAMA Rajan [facility] [place] [address] [place] [address] 01/12/2023 11:07:22 01/12/2023 11:47:28 Adult health examination 418008597 Z00.01 well exam completed Benign ess ential hypertension 9497373 I10 stable on maxzide Gastroesop hageal reflux disease 031510516 K21.9 stable on PPI therapy Generalize d anxiety disorder 16903194 F41.1 lexapro 20mg daily on board, still with anxiety but her work stress and desire to find a new job is the cause of most stress and anxiety now. Major depr essive disorder 884000390 F32.9 start wellbutrin XL 150mg daily. she scored higher on her PHQ-9 with her therapist recently. Long-term drug therapy 161518481 Z79.899 next labs due in April. Cholesterol screening 27 4722685 Z13.220 Diabetes m ellitus screening 725066730 Z13.1 Sleep apnea 46354787 G47 .30 episodes noted of waking up gasping from sleep. Apnea like , refer for home study. Migraine 87657561 G43.90 9 qulipta samples given to trial. ubrelvy still great for PRN use but she's waking up with migraines 3 days per week on average. ? underlying AYANNA causing. Health Concerns Section Related Observation LastModified by Organization Detai ls LastModified Time None Recorded Concern Status LastModified by Organization Details LastModified Time None Recorded Advance Directives Directive None Recorded Payers Encounter Date Sequence Insurance Name Policy Number Policy [place] Covered Member ID [place] Member ID Guarantor Name 01/12/2023 1 [employer] (PPO) [id number] Paulie Mooney [id number] Darling Cordero Notes Date Note Type Note Provider Name and Address Organization Details Recorded Time 021 text/ht ml Anxiety, Generalized DisorderReported bypatient.Modifying Factors:psychotropic medication (prn) Associated Symptoms:no difficulty concentrating; no difficulty controlling worry; no difficulty swallowing; no anxiety; no excessive sweating; no hot flashes; no palpitations; no shortness of breath; no nausea; no diarrhea; no fatigue; no irritability; no muscle tension; no muscle aches; no trembling; no twitching; no headaches; no restlessness; no sleep disturbancesNotes: HypertensionReported bypatient.Alleviating Factors:medication Self Care:not under emotional stress Associated Symptoms:no shortness of breath; no fatigue; no palpitations; no decline in exercise capacity; no snoring Not Available [employer] [facility] 01/14/2021 19:40:22 021 text/ht ml Anxiety, Generalized DisorderReported bypatient.Associated Symptoms:no difficulty concentrating; no difficulty controlling worry; no difficulty swallowing; no anxiety; no excessive sweating; no hot flashes; no palpitations; no shortness of breath; no nausea; no diarrhea; no fatigue; no irritability; no muscle tension; no muscle aches; no trembling; no twitching; no headaches; no restlessness; no sleep disturbancesHypertensionReported bypatient.Onset/Timing:better Self Care:not under emotional stress Associated Symptoms:no shortness of breath; no fatigue; no palpitations; no decline in exercise capacity; no snoring Not Available [employer] [facility] 07/17/2021 12:00:46 022 text/ht ml Anxiety/DepressionReported bypatient.Quality:doesnt matter time of day Severity:denies suicidal ideations; able to maintain relationships; does not interfere with activities of daily living Duration:symptoms lasting over 2 weeks Onset/Timing:still present Context:no major life stressors Modifying Factors:medications as directed Associated Symptoms:denies homicidal ideations; no significant weight gain; no significant weight loss; no visual/auditory hallucinations; no delusions; no shortness of breath; mood good; no anxiety; no crying spells; no panic; no isolation; sleeping well; appetite good; energy good; no apathy; maintaining functionalityHypertensionReported bypatient.Duration:has noted for years Onset/Timing:better Alleviating Factors:medication Self Care:not under emotional stress Associated Symptoms:no shortness of breath; no fatigue; no palpitations; no decline in exercise capacity; no snoringReflux/GERDReported bypatient.Symptomsasymptomatic; no difficulty swallowing; no pain swallowing; no postprandial pain Severity:same Duration:present 5 or more years Onset/Timing:gone now Context:non-smoker; no drug/alcohol abuse; no drug alcohol withdrawal;related to any meal Alleviating Factors:medication Aggravating Factors:worsened by food Associated Symptoms:no frequent coughing; no hoarseness; no food getting stuck; no belching/burping; no vomiting; not vomiting blood; no regurgitation; no shortness of breath; no chest pain; no heartburn; no difficulty swallowing; no pain when swallowing; no bad taste; no decreased appetite; no weight loss; no black/tarry stools; no fatigue; no throat pain; no dental erosion; no bloating; no early satiety; no halitosis Not Available [facility] 01/14/2022 22:36:22 022 text/ht ml Anxiety/DepressionReported bypatient.Quality:doesnt matter time of day Severity:denies suicidal ideations; able to maintain relationships; does not interfere with activities of daily living Duration:symptoms lasting over 2 weeks Onset/Timing:still present Context:major life stressors(brother n law just ) Modifying Factors:medications as directed Associated Symptoms:denies homicidal ideations; no significant weight gain; no significant weight loss; no visual/auditory hallucinations; no delusions; no shortness of breath; mood good; no anxiety; no crying spells; no panic; no isolation; sleeping well; appetite good; energy good; no apathy; maintaining functionalityHypertensionReported bypatient.Duration:has noted for years Onset/Timing:better Alleviating Factors:medication Self Care:under emotional stress Associated Symptoms:no shortness of breath; no fatigue; no palpitations; no decline in exercise capacity; no snoringReflux/GERDReported bypatient.Symptomsasymptomatic; no difficulty swallowing; no pain swallowing; no postprandial pain Severity:same Duration:present 5 or more years Onset/Timing:gone now Context:non-smoker; no drug/alcohol abuse; no drug alcohol withdrawal; not related to food/drink Alleviating Factors:medication Associated Symptoms:no frequent coughing; no hoarseness; no food getting stuck; no belching/burping; no vomiting; not vomiting blood; no regurgitation; no shortness of breath; no chest pain; no heartburn; no difficulty swallowing; no pain when swallowing; no bad taste; no decreased appetite; no weight loss; no black/tarry stools; no fatigue; no throat pain; no dental erosion; no bloating; no early satiety; no halitosis Not Available [facility] 07/15/2022 18:21:58 023 text/ht ml Anxiety, Generalized DisorderReported bypatient.Severity:moderate Context:depression; life stressors Modifying Factors:other medications Associated Symptoms:no difficulty concentrating; no difficulty controlling worry; no difficulty swallowing; no excessive sweating; no hot flashes; no palpitations; no shortness of breath; no nausea; no diarrhea; no fatigue; no muscle tension; no muscle aches; no trembling; no twitching; no sleep disturbances;difficulty controlling worry;excess anxiety;excessive sweating;high irritability;muscle tension;headaches;restlessnessNotes: therapist believes pt has depressionHypertensionReported bypatient.Onset/Timing:better Associated Symptoms:no shortness of breath; no fatigue; no palpitations; no decline in exercise capacity; no snoringReflux/GERDReported bypatient.Severity:improving Context:non-smoker; no drug/alcohol abuse; no drug alcohol withdrawal; not related to food/drink Alleviating Factors:medication Associated Symptoms:no frequent coughing; no feeling of fullness/mass in throat; no hoarseness; no food getting stuck; no belching/burping; no nausea; no vomiting; not vomiting blood; no regurgitation; no shortness of breath; no chest pain; no heartburn; no difficulty swallowing; no pain when swallowing; no bad taste; no decreased appetite; no weight loss; no black/tarry stools; no fatigue; no throat pain well exam JAMA Rajan [address] [facility], [facility] [address], [place], [address], [place] [facility] 01/12/2023 11:52:16 OBGyn Episode No OBEpisode recorded.
[2025-01-06 09:37] LABS: EDCOVIDSCREEN Negative (Negative); EDINFLUASCREEN Negative (Negative); EDINFLUBSCREEN Negative (Negative)
== END 2025-01-06 09:38 | disposition home or self-care (01) ==
PROVIDERS: Emergency Provider Nurse Practitioner; PCP Physician Assistant
DX: J02.0 Streptococcal pharyngitis (principal); Z20.822 Contact with and (suspected) exposure to COVID-19; F41.9 Anxiety disorder, unspecified
CPT/HCPCS: 87426; 87804; 99213; G0463